=== PATIENT | female | born 1970 | race Caucasian/White ===

== ENCOUNTER → 2017-04-14 | Outpatient (CLI) | payer OTHER ==
[~2017-04-14] MED LIST: LEVO75TA PO; NAPR220T PO
== END | disposition home or self-care (01) ==
LOC: C.LABSPEC 13:27
PROVIDERS: ATTEND Physician Assistant
DX: N76.0 Acute vaginitis (principal)

== ENCOUNTER 2019-12-01 14:40 | Inpatient (IN) ==
[2019-12-01] MEDS ORDERED: cefTRIAXone SODIUM 1,000 MG/50 ML BAG IV STA ×2 (14:43→17:40)
[2019-12-01] MEDS ORDERED: SODIUM CHLORIDE 0.9% 1000ML 1,000 ML IV ONE ×2 (14:43→17:40)
[2019-12-01] MEDS ORDERED: ONDANSETRON INJ 2 MG/ML 2 ML VIAL IV STA (14:43)
--- NOTE | 2019-12-01 14:50 | Emergency Department Note ---
Impression & Plan Bacteremia, UTI (urinary tract infection), Fever, Headache ED Provider Note NAME: HAMZAH SCHERER AGE: 49 SEX: F : 1970 ARRIVES VIA: Walk-In INFORMANT: [Patient][notes] ED PROVIDER(S): [Monster Weinstein MD] CHIEF COMPLAINT: Positive blood cultures HISTORY OF PRESENT ILLNESS: The patient is a 49-year-old female who I saw yesterday in the ED for fever and a headache. She was diagnosed with a UTI. She did have a white count of 12,000. She was given IV Rocephin and prescribed Omnicef. She has been isolating herself as a coronavirus test had been run and was pending. Today, the patient's blood cultures returned showing gram-negative bacilli. Her urine culture grew the same. She was called and told to report back to the ED. The patient states that she still feels hot like she has a fever. She still has a headache but it was not as bad today as yesterday. The headache is moderate in severity and she thinks it may be from lack of nicotine, she recently quit smoking. She has nausea and did vomit one time prior to arrival. No real cough or congestion. She did start her Omnicef as prescribed yesterday. She has taken 1 pill. In general, she does feel better than yesterday. REVIEW OF SYSTEMS: See HPI for pertinent positives and negatives. A total of ten systems were reviewed and were otherwise negative. PMHx/PSHx: See Below SOCIAL HISTORY: See Below. PHYSICAL EXAM: GENERAL: Patient is in no acute distress. HEENT: No acute trauma, normocephalic atraumatic, mucous membranes moist, no nasal congestion, no scleral icterus. NECK: No stridor, no adenopathy, no meningismus, trachea is midline. LUNGS: No respiratory distress, no accessory muscle use. Normal respiratory rate. HEART: Mildly tachycardic, regular rhythm. Equal pulses in both upper extremities. ABDOMEN: Soft, nontender, bowel sounds positive, no hernias, no peritonitis. EXTREMITIES: No cyanosis or edema, full range of motion of all the joints without pain or difficulty, no signs for acute trauma. NEUROLOGIC: Oriented x 3, no acute motor or sensory deficits, no focal weakness. SKIN: No rash, no jaundice, no diaphoresis. DIFFERENTIAL DIAGNOSIS: Sepsis, UTI, pneumonia, metabolic, pyelonephritis, electrolyte abnormalities, bacteremia, cardiac sources, intracerebral event, toxicologic, neurologic, as well as other pathologies. EMERGENCY DEPARTMENT COURSE/PROCEDURES: MEDICAL DECISION MAKING: There is a mild leukocytosis at 11,000, this would be consistent with infection. No anemia. There is a normal platelet count. Renal panel testing does not show renal failure or significant electrolyte abnormality. Lactic acid level was normal making sepsis less likely. There were a few very subtle liver enzyme elevations. Repeat blood cultures were ordered. The patient's blood cultures from yesterday have returned with gram-negative bacilli, this is the same with her urine culture. The patient is going to be hospitalized for IV antibiotic therapy and hydration. The patient was given IV saline, IV Zofran, IV Toradol, IV ceftriaxone and oral Tylenol. She was given a nicotine patch. She is currently resting comfortably. I spoke to the patient and case management. The on-call hospitalist was consulted. Of note, a rapid coronavirus test was performed while in the ED, this returned negative. Past Med/Surg History Medical History Hematuria (Resolved) Hypothyroid Tobacco use Surgical History History of Social History Smoking Status: Former smoker Tobacco Type: Cigarettes Smoking End Date: 11/28/2019; Tobacco Cessation Education Requested by Patient: No Hx Alcohol Use: Yes Alcohol Intake Frequency: Monthly or Less Hx Substance Use: No Preferred Language: Kiswahili Communication Ability: Effective Beliefs That Will Affect Care: None Current Living Situation: Family Feels Safe at Home: Yes Safety Concerns: Feels Safe At This Time Allergies Allergies Allergy/AdvReac Type Severity Reaction Status Date / Time Sulfa (Sulfonamide AdvReac Intermediate VOMITING Verified 12/01/19 15:48 Antibiotics) Home Meds Home Medications Medication Instructions Recorded Confirmed levothyroxine 75 mcg PO DAILY 03/16/19 12/01/19 omeprazole magnesium [Prilosec OTC] 20 mg PO DAILY PRN 03/16/19 12/01/19 cyanocobalamin (vitamin B-12) 0 mcg IM MO 12/01/19 12/01/19 Previous Rx's Medication Instructions Recorded cefdinir 300 mg PO BID 10 Days #20 cap 11/30/19 ondansetron HCl [Zofran] 4 mg PO Q6H PRN #14 tab 11/30/19 Results & Data (ED) Vital Signs Vital Signs - 24 hr 12/01/19 14:45 12/01/19 15:30 12/01/19 15:36 Temperature 38.3 C H Temperature Source Oral Pulse Rate 117 H 93 H 89 Respiratory Rate 16 16 18 Blood Pressure 115/76 118/75 Blood Pressure Mean 89 83 Pulse Oximetry 98 Oxygen Delivery Method Room Air Sepsis Recent Fever Within 48 Hours Yes Sepsis New/Unexplained Change in Mental Status N/A Sepsis Action Taken by Nursing No Action Required 12/01/19 16:00 12/01/19 16:01 12/01/19 16:30 Temperature Temperature Source Pulse Rate 80 79 75 Respiratory Rate 20 18 18 Blood Pressure 101/71 97/72 L Blood Pressure Mean 80 75 Pulse Oximetry Oxygen Delivery Method Sepsis Recent Fever Within 48 Hours Sepsis New/Unexplained Change in Mental Status Sepsis Action Taken by Nursing 12/01/19 16:31 12/01/19 17:00 12/01/19 17:01 Temperature Temperature Source Pulse Rate 74 68 68 Respiratory Rate 17 17 17 Blood Pressure 97/67 L Blood Pressure Mean 71 Pulse Oximetry Oxygen Delivery Method Sepsis Recent Fever Within 48 Hours Sepsis New/Unexplained Change in Mental Status Sepsis Action Taken by Nursing 12/01/19 17:30 12/01/19 17:31 12/01/19 18:00 Temperature 36.8 C Temperature Source Oral Pulse Rate 67 69 66 Respiratory Rate 21 20 18 Blood Pressure 104/73 111/75 Blood Pressure Mean 77 84 Pulse Oximetry Oxygen Delivery Method Sepsis Recent Fever Within 48 Hours Sepsis New/Unexplained Change in Mental Status Sepsis Action Taken by Nursing 12/01/19 18:01 Temperature Temperature Source Pulse Rate 63 Respiratory Rate 18 Blood Pressure Blood Pressure Mean Pulse Oximetry Oxygen Delivery Method Sepsis Recent Fever Within 48 Hours Sepsis New/Unexplained Change in Mental Status Sepsis Action Taken by [facility] Medications Current Medication List: was personally reviewed by me Laboratory Data Attestation: I reviewed the patient's lab results. Result diagrams: 12/01/19 15:04 12/01/19 15:04 Lab Results 12/01/19 12/01/19 12/01/19 Range/Units 15:04 15:04 15:04 WBC 11.33 H (4.8-10.8) K/uL RBC 4.70 (4.2-5.4) M/uL Hgb 15.5 (12.0-16.0) g/dL Hct 42.9 (37-47) % MCV 91.3 (80-100) fL MCH 33.0 (25-34) pg MCHC 36.1 H (32-36) g/dL RDW Std Deviation 46.0 (36.4-46.3) fL RDW Coeff of [place] 13.6 (11.5-14.5) % Plt Count 146 (130-400) K/uL MPV 11.2 H (7.4-10.4) fL Immature Gran % (Auto) 0.3 % Neut % (Auto) 82.0 % Lymph % (Auto) 5.8 % [place] % (Auto) 11.6 % Eos % (Auto) 0.1 % Baso % (Auto) 0.2 % Neut # (Auto) 9.30 H (1.4-6.5) K/uL Lymph # (Auto) 0.66 L (1.2-3.4) K/uL [place] # (Auto) 1.31 H (0.11-0.59) K/uL Eos # (Auto) 0.01 (0-0.5) K/uL Baso # (Auto) 0.02 (0-0.2) K/uL Immature Gran # (Auto) 0.03 H (0.00-0.02) K/uL Sodium 133 L (136-145) mmol/L Potassium 3.5 (3.5-5.1) mmol/L Chloride 104 (98-107) mmol/L Carbon Dioxide 20 L (21-32) mmol/L Anion Gap 9.0 (3-11) BUN 15 (7-18) mg/dl Creatinine 0.98 (0.6-1.2) mg/dl Est Cr Clr Drug Dosing 70.0 ml/min Est GFR ( Amer) 78.5 Est GFR (Non-Af Amer) 67.7 BUN/Creatinine Ratio 15.5 (10-20) Glucose 124 H (70-99) mg/dl Lactate 1.6 (0.4-2.0) mmol/L Calcium 8.2 L (8.5-10.1) mg/dl Total Bilirubin 1.7 H D (0.2-1) mg/dl AST 39 H (15-37) U/L ALT 37 (12-78) U/L Alkaline Phosphatase 112 (45-117) U/L Total Protein 6.6 (6.4-8.2) gm/dl Albumin 3.0 L (3.4-5.0) gm/dl Globulin 3.6 (2.5-4.0) gm/dl Albumin/Globulin Ratio 0.8 L (0.9-2) COVID-19 PCR (Negative) 12/01/19 Range/Units 16:45 WBC (4.8-10.8) K/uL RBC (4.2-5.4) M/uL Hgb (12.0-16.0) g/dL Hct (37-47) % MCV (80-100) fL MCH (25-34) pg MCHC (32-36) g/dL RDW Std Deviation (36.4-46.3) fL RDW Coeff of [place] (11.5-14.5) % Plt Count (130-400) K/uL MPV (7.4-10.4) fL Immature Gran % (Auto) % Neut % (Auto) % Lymph % (Auto) % [place] % (Auto) % Eos % (Auto) % Baso % (Auto) % Neut # (Auto) (1.4-6.5) K/uL Lymph # (Auto) (1.2-3.4) K/uL [place] # (Auto) (0.11-0.59) K/uL Eos # (Auto) (0-0.5) K/uL Baso # (Auto) (0-0.2) K/uL Immature Gran # (Auto) (0.00-0.02) K/uL Sodium (136-145) mmol/L Potassium (3.5-5.1) mmol/L Chloride (98-107) mmol/L Carbon Dioxide (21-32) mmol/L Anion Gap (3-11) BUN (7-18) mg/dl Creatinine (0.6-1.2) mg/dl Est Cr Clr Drug Dosing ml/min Est GFR ( Amer) Est GFR (Non-Af Amer) BUN/Creatinine Ratio (10-20) Glucose (70-99) mg/dl Lactate (0.4-2.0) mmol/L Calcium (8.5-10.1) mg/dl Total Bilirubin (0.2-1) mg/dl AST (15-37) U/L ALT (12-78) U/L Alkaline Phosphatase (45-117) U/L Total Protein (6.4-8.2) gm/dl Albumin (3.4-5.0) gm/dl Globulin (2.5-4.0) gm/dl Albumin/Globulin Ratio (0.9-2) COVID-19 PCR NEGATIVE (Negative) Administered Medications Sodium Chloride (Nss 1000ml) 1,000 mls @ 125 mls/hr IV .Q8H NIRMAL Stop: 12/02/19 11:55 Last Admin: 12/01/19 20:05 Dose: 125 mls/hr Documented by: [id number] Discontinued Medications Acetaminophen (Tylenol) 1,000 mg PO NOW STA Stop: 12/01/19 14:53 Last Admin: 12/01/19 15:20 Dose: 1,000 mg Documented by: [id number] Sodium Chloride (Nss 1000ml) 1,000 mls @ 999 mls/hr IV .Q1H1M ONE Stop: 12/01/19 15:43 Last Infusion: 12/01/19 17:37 Dose: 0 mls/hr Documented by: [id number] Admin: 12/01/19 15:20 Dose: 999 mls/hr Documented by: [id number] Ceftriaxone Sodium (Rocephin) 1,000 mg in 50 mls @ 100 mls/hr IV NOW STA Stop: 12/01/19 15:12 Last Infusion: 12/01/19 16:18 Dose: 0 mls/hr Documented by: [id number] Admin: 12/01/19 15:19 Dose: 100 mls/hr Documented by: [id number] Sodium Chloride (Nss 1000ml) 1,000 mls @ 999 mls/hr IV .Q1H1M ONE Stop: 12/01/19 18:40 Last Infusion: 12/01/19 19:08 Dose: 0 mls/hr Documented by: [id number] Admin: 12/01/19 18:07 Dose: 999 mls/hr Documented by: [id number] Ceftriaxone Sodium (Rocephin) 1,000 mg in 50 mls @ 100 mls/hr IV NOW STA Stop: 12/01/19 18:09 Last Infusion: 12/01/19 18:37 Dose: 0 mls/hr Documented by: [id number] Admin: 12/01/19 18:07 Dose: 100 mls/hr Documented by: [id number] Ketorolac Tromethamine (Toradol) 15 mg IV NOW STA Stop: 12/01/19 14:53 Last Admin: 12/01/19 15:20 Dose: 15 mg Documented by: [id number] Nicotine (Nicoderm Cq) 21 mg TD NOW STA Stop: 12/01/19 15:36 Last Admin: 12/01/19 15:50 Dose: 21 mg Documented by: [id number] Ondansetron HCl (Zofran) 4 mg IV NOW STA Stop: 12/01/19 14:44 Last Admin: 12/01/19 15:20 Dose: 4 mg Documented by: [id number] Potassium Chloride (Klor-Con M20) 40 meq PO NOW STA Stop: 12/01/19 18:09 Last Admin: 12/01/19 18:46 Dose: 40 meq Documented by: [id number] Blood Pressure Blood Pressure Findings: Normal blood pressure Blood Pressure Disposition: further management by hospitalist Discharge Plan Visit Data *Final* Discharge Date/Time: 12/01/19 19:08 Chief Complaint: Abnormal Labs/Diagnostic Testing Stated Complaint: blood work last night bacteria in blood ED Provider: Monster Weinstein Discharge Problem: Bacteremia, UTI (urinary tract infection), Fever, Headache Patient Disposition: Admitted As Inpatient Discharge Instructions Interventions: ED Discharge Assessment Last Done: 12/01/19 19:08 Discharge Problem: UTI (urinary tract infection) Qualifiers: Urinary tract infection type: acute cystitis Hematuria presence: without hematuria Qualified Code(s): N30.00 - Acute cystitis without hematuria Fever Qualifiers: Fever type: unspecified Qualified Code(s): R50.9 - Fever, unspecified Headache Qualifiers: Headache type: unspecified Headache chronicity pattern: acute headache Intractability: not intractable Qualified Code(s): R51 - Headache
[2019-12-01] MEDS ORDERED: KETOROLAC TROMETHAMINE 15 MG/ML VIAL IV STA (14:52)
[2019-12-01] MEDS ORDERED: ACETAMINOPHEN 500 MG TAB PO STA (14:52)
[2019-12-01 15:27] LABS: Basophils # (auto) 0.02 K/uL (0-0.2); Basophils % (auto) 0.2 %; Eosinophils # (auto) 0.01 K/uL (0-0.5); Eosinophils % (auto) 0.1 %; Hematocrit (blood only) 42.9 % (37-47); Hemoglobin 15.5 g/dL (12.0-16.0); Immature Granulocytes # (auto) 0.03 K/uL (0.00-0.02); Immature Granulocytes % (auto) 0.3 %; Lymphocytes # (auto) 0.66 K/uL (1.2-3.4); Lymphocytes % (auto) 5.8 %; Mean Corpuscular Hgb Conc 36.1 g/dL (32-36); Mean Corpuscular Volume 91.3 fL (80-100); Mean Platelet Volume 11.2 fL (7.4-10.4); Monocytes # (auto) 1.31 K/uL (0.11-0.59); Monocytes % (auto) 11.6 %; Platelet Count 146 K/uL (130-400); RDW Coefficient of Variation 13.6 % (11.5-14.5); White Blood Count 11.33 K/uL (4.8-10.8)
[2019-12-01] MEDS ORDERED: NICOTINE 21 MG/24 HR TDSY TD STA (15:35)
[2019-12-01 15:44] LABS: BUN Creatinine Ratio 15.5 (10-20); Calcium 8.2 mg/dl (8.5-10.1); Est GFR (African American) 78.5; Est GFR (Non-African American) 67.7; Potassium 3.5 mmol/L (3.5-5.1)
[2019-12-01 15:52] LABS: Albumin Globulin Ratio 0.8 (0.9-2); Bilirubin,Total 1.7 mg/dl (0.2-1); Globulin 3.6 gm/dl (2.5-4.0); Total Protein 6.6 gm/dl (6.4-8.2)
[2019-12-01] MEDS ORDERED: POTASSIUM CHLORIDE 20 MEQ TABCR PO STA (18:08)
--- NOTE | 2019-12-01 18:25 | History & Physical Report ---
Date of Service December 01, 2019 Assessment & Plan (1) Bacteremia: (2) UTI (urinary tract infection): Pt is 49 y/o F with PMH hypothyroidism returned to ER at request secondary to positive blood cultures. Patient with fever x4 days. Was seen in ER yesterday for fever, headache, dark foul-smelling urine, nausea, decreased appetite 11/30/2019 preliminary urine culture gram-negative bacilli, preliminary blood culture gram-negative bacilli Today in ER T: 38.3, peak: 117, RR: 16, BP 115/76, 98% on room air. WBC 11, lactate 1.6. Negative rapid COVID-19 PCR In ER given 1 g of Rocephin, 1 L NSS Will give additional 1 g of Rocephin to treat bacteremia, an additional 1 L NSS bolus IVF Rocephin [address] abdomen pelvis pending CBC, BMP in a.m. (3) Hypothyroid: Continue levothyroxine (4) Tobacco use: Smoking cessation encouraged Nicotine patch DVT Prophylaxis -SCDs Follows with Dr Celestin for routine care Pt was seen and care coordinated with Dr Lopez. See addendum History of Present Illness Chief Complaint: Requested to return to ER secondary to positive blood cultures Primary Care Provider: Nicholas Celestin MD Pt is 49 y/o F with PMH hypothyroidism returned to ER at request secondary to positive blood cultures. Patient with fever x4 days. Was seen in ER yesterday for fever, headache, dark foul-smelling urine, nausea, decreased appetite. Yesterday in ER WBC: 12, UA consistent with UTI and was treated with Rocephin and discharged on cefdinir. Yesterday patient also had negative CT head, negative CXR, and had COVID testing which is pending. Patient reports her daughter had been diagnosed with COVID 19 around 05 November. Daughter lives with her and daughter was trying to self isolate in bedroom upon diagnosis. Patient denies any shortness of breath, chest pain, cough. She denies diarrhea, abdominal pain, back pain, flank pain, hematuria, dysuria, urinary frequency. Patient states she believes her headache is secondary to nicotine withdrawal. Today since being in ER having a nicotine patch on headache has almost resolved. Denies dizziness, syncope, vision changes, neck pain, sore throat, choking, otalgia, rhinorrhea, paresthesias, extremity weakness, extremity edema, rashes. Allergies Allergy/AdvReac Type Severity Reaction Status Date / Time Sulfa (Sulfonamide AdvReac Intermediate VOMITING Verified 12/01/19 15:48 Antibiotics) Home Medications Home Medications Medication Instructions Recorded Confirmed Type levothyroxine 75 mcg PO DAILY 03/16/19 12/01/19 History omeprazole magnesium [Prilosec OTC] 20 mg PO DAILY PRN 03/16/19 12/01/19 History cefdinir 300 mg PO BID 10 Days #20 cap 11/30/19 12/01/19 Rx ondansetron HCl [Zofran] 4 mg PO Q6H PRN #14 tab 11/30/19 12/01/19 Rx cyanocobalamin (vitamin B-12) 0 mcg IM MO 12/01/19 12/01/19 History Past Med/Surg History Medical History Hematuria (Resolved) Hypothyroid Tobacco use Surgical History History of Social History Smoking Status: Current every day smoker Tobacco Type: Cigarettes Hx Alcohol Use: Yes Alcohol Intake Frequency: Monthly or Less Hx Substance Use: No Preferred Language: Kinyarwanda Feels Safe at Home: Yes Review of Systems Review of Systems: All systems reviewed & are unremarkable except as noted in HPI & below Physical Exam Physical Exam: General: no distress, WDWN Head: normocephalic, atraumatic Eyes: PERRL, EOM's intact, conjunctiva non-injected, anicteric ENT: normal inspection external ears, nose, mucous membranes mildly dry Neck: supple, trachea midline Lungs: clear, no respiratory distress, no wheezing/rhonchi/rales CV: RRR, no murmur, no pretibial edema Abd: normal BS, soft, non-tender, mild left CVA tenderness to percussion Ext: no cyanosis, no calf tenderness Neuro: A&O x 3, no focal deficits noted, normal affect Skin: warm, dry Results & Data Results & Data ([facility]) Vital Signs (Past 12 Hours) Vital Signs Temp Pulse Resp BP Pulse Ox 12/01/19 18:01 63 18 12/01/19 18:00 66 18 111/75 12/01/19 17:31 69 20 12/01/19 17:30 36.8 C 67 21 104/73 12/01/19 17:01 68 17 12/01/19 17:00 68 17 97/67 L 12/01/19 16:31 74 17 12/01/19 16:30 75 18 97/72 L 12/01/19 16:01 79 18 12/01/19 16:00 80 20 101/71 12/01/19 15:36 89 18 12/01/19 15:30 93 H 16 118/75 12/01/19 14:45 38.3 C H 117 H 16 115/76 98 Laboratory Results Short CBC 12/01/19 Range/Units 15:04 WBC 11.33 H (4.8-10.8) K/uL Hgb 15.5 (12.0-16.0) g/dL Hct 42.9 (37-47) % Plt Count 146 (130-400) K/uL BMP 12/01/19 15:04 Sodium 133 L Potassium 3.5 Chloride 104 Carbon Dioxide 20 L BUN 15 Creatinine 0.98 Glucose 124 H Calcium 8.2 L Liver Function 12/01/19 Range/Units 15:04 Total Bilirubin 1.7 H D (0.2-1) mg/dl AST 39 H (15-37) U/L ALT 37 (12-78) U/L Alkaline Phosphatase 112 (45-117) U/L Albumin 3.0 L (3.4-5.0) gm/dl Code Status & VTE Plan VTE Prophylaxis Plan VTE Prophylaxis will be ordered: Yes Supervising Physician Co-Signing Physician Notes Patient was seen and examined by me, care coordinated with Nirmala Cornejo PA-C. Please see her note above for further details. Mrs. Nogueira, is a 49-year-old female, with history of hypothyroidism, GERD, history of UTIs when she was young but no recent UTI , who presents with fever, and confirmed gram-negative bacteremia. She was seen in the emergency room yesterday, and was diagnosed with UTI, sent home with antibiotics. Her blood cultures however came positive and therefore patient was contacted to present to emergency room. She was febrile in the emergency room, 38.3 Celsius, tachycardic 117, white blood cell count elevated at 12 K yesterday, 11.3 currently in ED. Blood pressure was low, 90s over 60s. She is meeting sepsis criteria. She also is known to be exposed to COVID-19, as her daughter was diagnosed about a month ago. COVID-19 rapid test in ED today was negative. Currently patient is sitting up in bed, in no acute distress. She was diaphoretic and febrile however now she feels better after IV fluids and Rocephin. Lungs are clear to auscultation bilaterally, no wheezing rhonchi or crackles. Heart sounds regular. Abdomen soft, nontender, nondistended. She has left flank tenderness. Moves all extremities spontaneously, alert and oriented x3, answers questions appropriately. Skin is warm, dry, well perfused. Patient received 1 g of Rocephin yesterday and 1 g today in ED. Because of her hypotension, I ordered another bolus of IV fluid. And 1 more gram of Rocephin for bacteremia. We will admit patient to hospital, and closely monitor her vital signs. Plan for IVF and 2 g of Rocephin daily. Control of nausea. Image kidneys to rule out obstruction. Lula Lopez MD (1) UTI (urinary tract infection) Hematuria presence: without hematuria Urinary tract infection type: acute cystitis Qualified Code(s): N30.00 - Acute cystitis without hematuria
[2019-12-01] MEDS ORDERED: ONDANSETRON INJ 2 MG/ML 2 ML VIAL IV PRN (19:56)
[2019-12-01] MEDS ORDERED: PANTOprazole 40 MG TAB PO PRN (19:56)
[2019-12-01] MEDS ORDERED: POLYETHYLENE (MIRALAX) 17 GM PACK PO PRN (19:56)
[2019-12-01] MEDS: SODIUM CHLORIDE 0.9% 1000ML 1,000 ML IV SCH (20:05)
--- NOTE | 2019-12-01 20:48 | CT Scan Report ---
CT OF THE ABDOMEN AND PELVIS WITHOUT CONTRAST CLINICAL HISTORY: Pyelonephritis COMPARISON STUDY: CT of the abdomen and pelvis November 08, 2015. TECHNIQUE: Axial images of the abdomen and pelvis were obtained without IV contrast. Images were revi ewed in the axial, sagittal, and coronal planes. Automated exposure control was utilized for the gigi dy. A dose lowering technique was utilized adhering to the principles of ALARA. FINDINGS: Imaged portions of the lower chest demonstrate a trace left pleural effusion. There is mild splenomegaly. Evaluation of the abdomen and pelvis is suboptimal on this unenhanced examination. The liver, adrenal glands, pancreas and right kidney are normal are unremarkable with exception of a 1 c m hepatic lesion which is unchanged since prior CT. This represents a cyst.. There is no biliary or p ancreatic ductal dilatation. No renal, ureteral or bladder calculi are present. There is moderate lef t perinephric infiltration. Although suboptimally assessed on this unenhanced exam, no fluid collecti on is identified to suggest a renal abscess. There is no evidence for a bowel obstruction. There are tubal ligation clips. No suspicious osseous lesions are noted. The appendix is normal. There is no ly mphadenopathy. There are no suspicious skeletal lesions. IMPRESSION: 1. Moderate left perinephric infiltration. No urinary calculi or hydronephrosis. While nonspecific, t he findings suggest left-sided pyelonephritis. No fluid collection to suggest abscess on unenhanced e xam. 2. Mild splenomegaly. 3. Trace pleural effusion. ACT 112: Negative or not required by law. Electronically signed by: Carlos Paul M.D. 12/01/2019 8:46 PM
[2019-12-02] MEDS: KETOROLAC TROMETHAMINE 15 MG/ML VIAL IV PRN ×2 (02:45→09:10)
[2019-12-02] MEDS: SODIUM CHLORIDE 0.9% 1000ML 1,000 ML IV SCH (04:04)
[2019-12-02] MEDS: LEVOTHYROXINE SODIUM 75 MCG TABLET PO SCH (05:41)
[2019-12-02] MEDS: ACETAMINOPHEN 325 MG TAB PO PRN (05:41)
[2019-12-02] MEDS ORDERED: KETOROLAC TROMETHAMINE 15 MG/ML VIAL IV ONE (05:58)
[2019-12-02 07:20] LABS: Basophils # (auto) 0.01 K/uL (0-0.2); Basophils % (auto) 0.1 %; Eosinophils # (auto) 0.02 K/uL (0-0.5); Eosinophils % (auto) 0.2 %; Hematocrit (blood only) 35.6 % (37-47); Hemoglobin 12.8 g/dL (12.0-16.0); Immature Granulocytes # (auto) 0.02 K/uL (0.00-0.02); Immature Granulocytes % (auto) 0.2 %; Lymphocytes # (auto) 0.87 K/uL (1.2-3.4); Lymphocytes % (auto) 9.4 %; Mean Corpuscular Volume 91.8 fL (80-100); Mean Platelet Volume 11.2 fL (7.4-10.4); Monocytes # (auto) 0.98 K/uL (0.11-0.59); Monocytes % (auto) 10.6 %; Neutrophils # (auto) 7.37 K/uL (1.4-6.5); Neutrophils % (auto) 79.5 %; Platelet Count 153 K/uL (130-400); RDW Coefficient of Variation 13.8 % (11.5-14.5); RDW Standard Deviation 46.2 fL (36.4-46.3); Red Blood Count 3.88 M/uL (4.2-5.4); White Blood Count 9.27 K/uL (4.8-10.8)
[2019-12-02 07:53] LABS: BUN Creatinine Ratio 14.5 (10-20); Calcium 7.6 mg/dl (8.5-10.1); Creatinine Clr Calc Pharmacy 106.7 ml/min; Est GFR (Non-African American) 98.3; Potassium 3.5 mmol/L (3.5-5.1)
[2019-12-02] MEDS: NICOTINE 21 MG/24 HR TDSY TD SCH (09:10)
[2019-12-02] MEDS: OXYCODONE HCL IR 5 MG TAB (IMMEDIATE RELEASE) PO PRN ×2 (10:54→20:06)
[2019-12-02] MEDS ORDERED: cefTRIAXone SODIUM 2,000 MG in DEXTROSE 5% 50 ML IV SCH (16:00)
--- NOTE | 2019-12-02 16:55 | Hospitalist Progress Note ---
Date of Service December 02, 2019 Assessment & Plan (1) Septicemia: Sepsis 2/2 acute pyelonephritis. Urine culture has grown a Bactrim resistant E coli, which is likely what is growing in the blood, also. Speciation and sensitivity of the blood cultures have not returned, however, repeat blood culture from yesterday is already clear. She will likely need 14 days of cipro, but will get infectious disease thoughts on that prior to discharge. She is resuscitated and will transfer to medical floor. (2) Acute pyelonephritis: Cont Rocephin pending culture results and ID recommendations. (3) Hypothyroid: Continue levothyroxine per home regimen (4) Tobacco use: Smoking cessation encouraged Nicotine patch (5) DVT prophylaxis: Lovenox Full code Dispo-transfer to medical floor DO Destiny Melissa Hospitalist Admission and Anticipated Discharge Date Admission Date: December 01, 2019 Subjective Pt feeling much better today Afebrile Eating She still reports some lower suprapubic tenderness but this is much improved Denies dysuria reports symptom onset over the weekend (4-5 days ago) States she slept for two days [place] the river [place] with family. Review of Systems Review of Systems: All systems reviewed & are unremarkable except as noted in Subjective Physical Exam Physical Exam: CONSTITUTIONAL: WNWD, vitals as above, generally well- appearing EYES: normal conjunctivae, no scleral icterus ENT: external ear and nose normal, oropharynx clear, MMM RESPIRATORY: clear to auscultation bilaterally, no crackles, rales or wheezes, normal respiratory effort CARDIOVASCULAR: regular rate and rhythm, S1 and 2 heard without murmurs, gallops or rubs, no JVD, no peripheral edema GASTROINTESTINAL: normal bowel sounds, soft, nontender, nondistended, no CVA tenderness bilaterally MUSCULOSKELETAL: strength 5/5 throughout, head is normocephalic and atraumatic SKIN: warm and dry NEUROLOGIC: CN 2-12 grossly intact, normal cognition, no gross focal deficits. PSYCHIATRIC: alert cooperative and oriented to person, place and time. Results & Data Results & Data ([facility]) Vital Signs (Past 12 Hours) Vital Signs Temp Pulse Pulse Resp BP BP Pulse Ox 12/02/19 16:09 36.6 C 72 18 100/69 97 12/02/19 11:11 36.4 C L 64 18 99/66 L 96 12/02/19 08:00 75 12/02/19 07:15 36.8 C 71 18 121/83 96 Laboratory Results Short CBC 12/02/19 Range/Units 07:00 WBC 9.27 (4.8-10.8) K/uL Hgb 12.8 (12.0-16.0) g/dL Hct 35.6 L (37-47) % Plt Count 153 (130-400) K/uL BMP 12/02/19 07:00 Sodium 139 Potassium 3.5 Chloride 113 H Carbon Dioxide 18 L BUN 10 D Creatinine 0.72 Glucose 96 Calcium 7.6 L Medications Administered Current Inpatient Medications Acetaminophen (Tylenol) 650 mg PO Q4H PRN PRN Reason: Pain or Fever Stop: 12/31/19 19:55 Last Admin: 12/02/19 05:41 Dose: 650 mg Documented by: Ceftriaxone Sodium 2,000 mg/ (Dextrose) 70 mls @ 100 mls/hr IV Q24H [facility]; Protocol Stop: 12/12/19 15:59 Last Admin: 12/02/19 16:06 Dose: 100 mls/hr Documented by: Ketorolac Tromethamine (Toradol) 15 mg IV Q6H PRN PRN Reason: Pain Stop: 12/02/19 19:55 Last Admin: 12/02/19 09:10 Dose: 15 mg Documented by: Levothyroxine Sodium (Synthroid) 75 mcg PO DAILYBB [facility] Stop: 01/01/20 06:29 Last Admin: 12/02/19 05:41 Dose: 75 mcg Documented by: Miscellaneous (Remove Nicoderm Patch) 1 ea N/A DAILY@[id number] [facility] Stop: 01/02/20 08:58 Nicotine (Nicoderm Cq) 21 mg TD QAM [facility] Stop: 01/01/20 08:59 Last Admin: 12/02/19 09:10 Dose: 21 mg Documented by: Ondansetron HCl (Zofran) 4 mg IV Q6H PRN PRN Reason: Nausea Stop: 12/31/19 19:55 Last Admin: 12/02/19 00:05 Dose: 4 mg Documented by: Oxycodone HCl (Roxicodone Immediate Rel) 5 - 10 mg PO Q4H PRN PRN Reason: Pain Stop: 12/16/19 05:57 Last Admin: 12/02/19 10:54 Dose: 10 mg Documented by: Pantoprazole Sodium (Protonix) 40 mg PO DAILY PRN PRN Reason: Acid Reflux Stop: 12/31/19 19:55 Polyethylene Glycol (Miralax Powder Packet) 17 gm PO DAILY PRN PRN Reason: Constipation Stop: 12/31/19 19:55
[2019-12-02] MEDS ORDERED: ENOXAPARIN INJ 40 MG/0.4 ML SYR SQ SCH (18:00)
[2019-12-02] MEDS ORDERED: MELATONIN 3 MG TAB PO PRN (21:05)
[2019-12-03] MEDS: ACETAMINOPHEN 325 MG TAB PO PRN (04:53)
[2019-12-03] MEDS: LEVOTHYROXINE SODIUM 75 MCG TABLET PO SCH (04:54)
[2019-12-03 06:36] LABS: BUN Creatinine Ratio 8.7 (10-20); Calcium 7.9 mg/dl (8.5-10.1); Creatinine Clr Calc Pharmacy 121.9 ml/min; Est GFR (African American) 122.1; Est GFR (Non-African American) 105.3; Magnesium 2.1 mg/dl (1.8-2.4); Potassium 3.2 mmol/L (3.5-5.1)
[2019-12-03] MEDS: NICOTINE 21 MG/24 HR TDSY TD SCH (09:03)
[2019-12-03] MEDS: POTASSIUM CHLORIDE 20 MEQ TABCR PO SCH ×2 (12:18→15:03)
--- NOTE | 2019-12-03 14:18 | Discharge Summary ---
Date of Service December 03, 2019 Admission HPI Per Admitting Provider Pt is 49 y/o F with PMH hypothyroidism returned to ER at request secondary to positive blood cultures. Patient with fever x4 days. Was seen in ER yesterday for fever, headache, dark foul-smelling urine, nausea, decreased appetite. Yesterday in ER WBC: 12, UA consistent with UTI and was treated with Rocephin and discharged on cefdinir. Yesterday patient also had negative CT head, negative CXR, and had COVID testing which is pending. Patient reports her daughter had been diagnosed with COVID 19 around 05 November. Daughter lives with her and daughter was trying to self isolate in bedroom upon diagnosis. Patient denies any shortness of breath, chest pain, cough. She denies diarrhea, abdominal pain, back pain, flank pain, hematuria, dysuria, urinary frequency. Patient states she believes her headache is secondary to nicotine withdrawal. Today since being in ER having a nicotine patch on headache has almost resolved. Denies dizziness, syncope, vision changes, neck pain, sore throat, choking, otalgia, rhinorrhea, paresthesias, extremity weakness, extremity edema, rashes. Admission Exam Per Admitting Provider General: no distress, WDWN Head: normocephalic, atraumatic Eyes: PERRL, EOM's intact, conjunctiva non-injected, anicteric ENT: normal inspection external ears, nose, mucous membranes mildly dry Neck: supple, trachea midline Lungs: clear, no respiratory distress, no wheezing/rhonchi/rales CV: RRR, no murmur, no pretibial edema Abd: normal BS, soft, non-tender, mild left CVA tenderness to percussion Ext: no cyanosis, no calf tenderness Neuro: A&O x 3, no focal deficits noted, normal affect Skin: warm, dry Principal Diagnosis E coli bacteremia 2/2 acute pyelonephritis Sepsis 2/2 above-resolved Tobacco use Discharge Exam CONSTITUTIONAL: WNWD, vitals as above, generally well-appearing EYES: normal conjunctivae, no scleral icterus ENT: external ear and nose normal, oropharynx clear, MMM RESPIRATORY: clear to auscultation bilaterally, no crackles, rales or wheezes, normal respiratory effort CARDIOVASCULAR: regular rate and rhythm, S1 and 2 heard without murmurs, gallops or rubs, no JVD, no peripheral edema GASTROINTESTINAL: normal bowel sounds, soft, nontender, nondistended, no CVA tenderness bilaterally MUSCULOSKELETAL: strength 5/5 throughout, head is normocephalic and atraumatic SKIN: warm and dry NEUROLOGIC: CN 2-12 grossly intact, normal cognition, no gross focal deficits. PSYCHIATRIC: alert cooperative and oriented to person, place and time. Discharge Data Allergies Allergy/AdvReac Type Severity Reaction Status Date / Time Sulfa (Sulfonamide AdvReac Intermediate VOMITING Verified 12/01/19 15:48 Antibiotics) Consultations 12/01/19 15:45 ED Decision to Admit Stat 12/02/19 16:55 Consult Infectious Diseases Routine Ordered Studies 12/01/19 19:56 CT abd pelvis wo con Urgent Hospital Course (1) Septicemia: Sepsis 2/2 acute pyelonephritis. Urine and blood cultures grew a Bactrim resistant E coli and she was initially placed on Rocephin. [facility] services were consulted and recommended two weeks of cipro, provided on discharge. At time of discharge she was mentating and ambulating at baseline and tolerating p.o. She was afebrile and hemodynamically stable for least 24 hours and close primary care follow-up was recommended. (2) Acute pyelonephritis: Rocephin switched to Cipro as above. (3) Tobacco use: Smoking cessation was strongly recommended and nicotine transdermal patches were provided at discharge. Close primary care follow-up was recommended to assist with staying quit. Total Time Total Time Spent Total Time Spent (In Minutes): 60 Total Time Includes: Examination of the Patient, Discharge Planning, Medication Reconciliation and Communication With Other Providers Discharge Plan Discharge Items Patient Disposition: Home - Self-Care Reason For Visit: UTI,BACTEREMIA Discharge Diagnosis: E coli bacteremia 2/2 acute pyelonephritis Sepsis 2/2 above-resolved Tobacco use Activity: Resume your previous activity Non-emergency contact: Primary Care Provider Call non-emergency contact if: you have any medication questions, your symptoms worsen, your pain is not controlled, your pain is worsening, your pain is unusual for you, your pain is concerning for you and you have a fever Follow-up/Referrals: Nicholas Celestin MD [Primary Care Provider] - 12/07/19 11:20 am (12/07/2019 11:20 AM Provider Serina Walker MD Department General Internal Medicine [facility] ) Diet: Regular Addtl Attending Provider Instructions: Please take all medications as instructed on discharge list below. You are being continued on an antibiotic regimen going home. Please take the entire course of antibiotics unless you develop side effects. If this is the case, please contact your primary care physician (PCP) right away to be given an alternative. It is recommended that you followup with your PCP at the time/date above to ensure you are still doing well after the discharge home. It is strongly recommended that you quit smoking. You are being prescribed nicotine supplementation to help you with this as it is TERRIBLE FOR YOUR HEALTH! Another resource is 9-849-XGHW-NOW. It was a pleasure taking care of you! Please call if you have any questions or problems. You can reach a [facility] hospitalist on duty at [facility] 24 hours a day by calling [phone]. Take care of yourself. Lolis Hinds, DO [facility] Hospitalist Pending Studies at Discharge: Yes Studies:: finalized repeat blood cultures-negative at time of discharge. Stand-Alone Forms: My [facility], Work/School Release (Inpt), Smoking Cessation Medications and DC Order Prescriptions: New ciprofloxacin HCl 750 mg tablet 750 mg PO BID Qty: 28 RF: 0 nicotine [Nicoderm CQ] 21 mg/24 hr Patch 24 Hour 21 mg transdermal QAM Qty: 14 RF: 1 Continued levothyroxine 75 mcg tablet 75 mcg PO DAILY RF: 0 omeprazole magnesium [Prilosec OTC] 20 mg Tablet,Delayed Release (Dr/Ec) 20 mg PO DAILY PRN (Reason: Acid Reflux) RF: 0 ondansetron HCl [Zofran] 4 mg tablet 4 mg PO Q6H PRN (Reason: nausea and vomiting) Qty: 14 RF: 0 cyanocobalamin (vitamin B-12) 1,000 mcg/mL solution 0 mcg IM MO RF: 0 Discontinued cefdinir 300 mg capsule 300 mg PO BID 10 Days Qty: 20 RF: 0 Discharge Orders: Discharge Order (Routine); Ordered 12/03/19 Ordered By: Lolis Woods/Other Patient Handouts: Nicotine skin patches Admission Data Admit Date/Time: 12/01/19 18:10 Attending Provider: Lolis Hinds Admit Provider: Lan Lopez Primary Care Provider: Nicholas Celestin Other Providers: Lan Lopez ; Khalif Milan ; Kacie Patricio ; Dale Ken I. ; Atul Gonzalez II ; Alejandra Harris ; Shai Fang Other Interventions: Discharge Summary Assessment (RN) Last Done: 12/03/19 14:21 DC Date/Time DO NOT enter until pt leaves facility: 12/03/19 15:07
== END 2019-12-03 15:07 | disposition home or self-care (01) | DRG 872 ==
LOC: ED 14:40 → 2S 18:10 → SUATTDRO 18:10 → 2S 19:08 → 3N 12-02 20:22

== ENCOUNTER 2024-12-13 16:32 | Observation (INO) ==
--- NOTE | 2024-12-13 16:44 | Emergency Department Note ---
Impression & Plan Sepsis, Pyelonephritis of left kidney, UTI (urinary tract infection), Nausea, Left flank pain, Fever ED Provider Note CHIEF COMPLAINT: Infection, concern for sepsis, fever, chills, aches HISTORY OF PRESENTING ILLNESS: The patient is a 54-year-old female who presents to the emergency department due to nausea, fever, pain with urination, and left flank pain for 2 days. She states that she has been feeling a very fatigued and has chills. She reports having a history of urosepsis. She denies blood in her urine, constipation, diarrhea, chest pain, shortness of breath, and vomiting. REVIEW OF SYSTEMS: See HPI for pertinent positives and pertinent negatives. ALLERGIES: Sulfa antibiotics MEDICATIONS: See below PAST MEDICAL HISTORY: See below PHYSICAL EXAM: VITALS: Vitals are noted on the nurses note and reviewed by myself. Vital signs stable. GENERAL: 54-year-old female, lying uncomfortably in bed, in no acute distress, nondiaphoretic, well-developed well-nourished. SKIN: Capillary refill less than 2 seconds. HEENT: Normocephalic. PERRLA. EOMI. Nares patent. Mucous membranes moist. Neck is supple without nuchal rigidity. HEART: Regular rate and rhythm without murmurs gallops or rubs. LUNGS: CTA BL without wheezes, rales or rhonchi. No retractions or accessory muscle use. ABDOMEN: Positive BS x 4. Tenderness upon palpation to the left flank/left middle abdomen. The remaining abdominal quadrants are nontender. The abdomen is soft without masses. No guarding rebound tenderness. No ascites. MUSCULOSKELETAL: No gross musculoskeletal defects. NEURO: Patient was alert and oriented to person place and time. No focal neurological deficits. DIFFERENTIAL DIAGNOSIS: UTI, pyelonephritis, hydronephrosis, sepsis, appendicitis, diverticulitis, bowel obstruction, inflammatory bowel disease, PUD, biliary pathology, pancreatitis, mesenteric ischemia, aortic pathology, perforated viscus, among others. ED COURSE AND MEDICAL DECISION MAKING: HISTORY FROM INDEPENDENT HISTORIAN: The patient herself and her daughter. MEDICATIONS GIVEN: Tylenol 1000 mg IV, Zofran 4 mg IV, 2 g Rocephin IV, 2 L normal saline MONITOR: Continuous assistant business manager: Order was placed for continuous assistant business manager. INTERPRETATION OF LABS: I interpreted the labs with full lab results as below in the lab section of this note. Pertinent lab results discussed in the MDM section below. INTERPRETATION OF IMAGING: Imaging studies were interpreted by myself and read by radiology as per the imaging section of this note. CT abdomen pelvis - Left pyelonephritis. Small left renal cyst. A small amount of free pelvic fluid. Small hiatal hernia. A small hepatic cyst. ESCALATION OF CARE CONSIDERED: Escalation of care was considered due to patient having known UTI symptoms, left-sided flank pain, and fever. A full workup was completed and shows she does meet sepsis criteria with a known UTI, left pyelonephritis, fever, leukocytosis. The patient was admitted to medicine for IV antibiotics and hydration. CONSULTATIONS: On-call [facility] Hospitalist - Presented the patient to the provider and that she meets sepsis criteria with a UTI, left pyelonephritis, leukocytosis, and a documented fever here in the emergency department. She was given 2 g Rocephin, pain management, and Zofran for nausea. The patient has not been able to stay hydrated due to nausea and due to her meeting sepsis criteria and her appearance on physical exam I do believe that she would benefit from admission for IV antibiotics and hydration. Provider agreed to evaluate the patient and admitting her to medicine. MDM SUMMARY: I evaluated the 54-year-old female presents the emergency department due to left-sided flank pain, burning with urination for 2 days, and nausea. See HPI and physical exam above. IV access was established and labs were obtained. Tylenol and Zofran were given for symptom management. Due to the patient having a fever, noted UTI, and leukocytosis sepsis fluid repletion was started immediately. The patient was given 2 L normal saline. Leukocytosis WBC 5.59. RBC 4.80. Hemoglobin hematocrit 16.1/44.3. No electrolyte abnormalities. No ALLI. AST 18. ALT 19. Procalcitonin elevated 0.85. Lactate 1.1. Urinalysis shows 3+ protein, 1+ ketones, 3+ blood, positive nitrates, 2+ leukocyte Estrace. The patient was started on 2 g Rocephin. On reevaluation she does confirm that her nausea has improved but she is still experiencing pain. CT abdomen pelvis shows left pyelonephritis. Other incidental findings reviewed with the patient. Patient does admit to poor hydration due to feeling nauseous. After my evaluation of the patient and meeting sepsis criteria I do believe that she would benefit from admission to medicine for IV hydration and antibiotics. A consultation with the on-call [facility] hospitalist can be seen in detail above. They agreed to evaluating the patient and admitting her to medicine. Again all results were reviewed with the patient and she agrees to the outlined treatment plan. Further pain management was provided by the hospitalist team. The patient was admitted in stable condition. DIAGNOSIS: Sepsis, pyelonephritis left kidney, UTI, nausea, left flank pain, fever The chart was completed utilizing [employer] Speech voice recognition software. Grammatical errors, random word insertions, pronoun errors, and incomplete sentences are an occasional consequence of this system due to software limitations, ambient noise, and hardware issues. Any formal questions or concerns about the content, text, or information contained within the body of this dictation should be directly addressed to the provider for clarification. Past Med/Surg History Problem List (Updated 12/13/24 @ 21:40 by Teresa Vazquez PA-C) Fever (Acute) Left flank pain (Acute) UTI (urinary tract infection) (Acute) Pyelonephritis of left kidney (Acute) Sepsis (Acute) Medical History Prediabetes Hypothyroidism Tobacco use disorder Surgical History History of bilateral tubal ligation History of suburethral sling procedure H/O foot surgery Status post hysteroscopic ablation of endometrium History of Family History Brother Colon cancer Social History Smoking Status: Current every day smoker Tobacco Type: Cigarettes Hx Alcohol Use: Yes Alcohol Intake Frequency: Monthly or Less Hx Substance Use: No Preferred Language: Vincentian Communication Ability: Effective Beliefs That Will Affect Care: None Current Living Situation: Family Feels Safe at Home: Yes Assistive Devices: None Allergies Allergies Allergy/AdvReac Type Severity Reaction Status Date / Time Sulfa (Sulfonamide AdvReac Intermediate VOMITING Verified 12/13/24 19:10 Antibiotics) Home Meds Home Medications Medication Instructions Recorded Confirmed No Known Home Medications 12/13/24 12/13/24 Results & Data (ED) Vital Signs Vital Signs - 24 hr 12/13/24 16:35 12/13/24 16:59 12/13/24 17:30 Temperature 37.1 C 37.9 C H Temperature Source Oral Oral Pulse Rate 113 H 102 H Pulse Rate [Apical] 79 Pulse Strength [Apical] Normal Respiratory Rate 17 18 Respiratory Effort / Characteristics Non-Labored Spontaneous Respiratory Depth Normal Respiratory Pattern Regular Blood Pressure 115/81 Blood Pressure [Right Arm] 113/76 Blood Pressure Mean 92 Blood Pressure Mean [Right Arm] 88 Pulse Oximetry 95 98 Oxygen Delivery Method Room Air Room Air Sepsis Recent Fever Within 48 Hours Yes Sepsis New/Unexplained Change in Mental Status N/A Sepsis Action Taken by Nursing No Action Required 12/13/24 18:16 12/13/24 18:25 Temperature 37.3 C Temperature Source Oral Pulse Rate Pulse Rate [Apical] 81 Pulse Strength [Apical] Respiratory Rate 19 Respiratory Effort / Characteristics Non-Labored Spontaneous Respiratory Depth Normal Respiratory Pattern Regular Blood Pressure Blood Pressure [Right Arm] 116/74 Blood Pressure Mean Blood Pressure Mean [Right Arm] 88 Pulse Oximetry 99 Oxygen Delivery Method Room Air Sepsis Recent Fever Within 48 Hours Sepsis New/Unexplained Change in Mental Status Sepsis Action Taken by Nursing Laboratory Data 12/13/24 16:50 12/13/24 16:50 Lab Results 12/13/24 12/13/24 Range/Units 16:45 16:50 WBC 15.59 H (4.8-10.8) K/ul RBC 4.80 (4.20-5.40) M/uL Hgb 16.1 H (12.0-16.0) g/dl Hct 44.3 (37.0-47.0) % MCV 92.3 (80.0-100.0) fL MCH 33.5 (25.0-34.0) pg MCHC 36.3 H (32.0-36.0) g/dL RDW Std Deviation 44.1 (36.4-46.3) fL RDW Coeff of [place] 13.0 (11.5-14.5) % Plt Count 220 (130-400) K/uL MPV 10.4 (9.4-12.4) fL Immature Gran % (Auto) 0.5 % Neut % (Auto) 85.3 % Lymph % (Auto) 8.8 % [place]ake % (Auto) 4.9 % Eos % (Auto) 0.1 % Baso % (Auto) 0.4 % Neut # (Auto) 13.30 H (1.40-6.50) K/uL Lymph # (Auto) 1.37 (1.20-3.40) K/uL Leake # (Auto) 0.76 H (0.11-0.59) K/uL Eos # (Auto) 0.01 (0.00-0.50) K/uL Baso # (Auto) 0.07 (0.00-0.20) K/uL Immature Gran # (Auto) 0.08 (0.01-0.20) K/uL Sodium 136 (136-145) mmol/L Potassium 3.5 (3.5-5.1) mmol/L Chloride 105 (98-107) mmol/L Carbon Dioxide 22 (21-32) mmol/L Anion Gap 9 (3-11) BUN 11 (6-23) mg/dl Creatinine 0.92 (0.6-1.2) mg/dl Est Cr Clr Drug Dosing 83.1 ml/min eGFR 73.99 BUN/Creatinine Ratio 12.0 (10-20) Glucose 126 H (70-99(Fasting)) mg/dl Lactate 1.1 (0.4-2.0) mmol/L Calcium 9.1 (8.6-10.3) mg/dl Total Bilirubin 1.7 H (0.2-1.0) mg/dl AST 18 (13-39) U/L ALT 19 (7-52) U/L Alkaline Phosphatase 75 (34-104) U/L Total Protein 6.9 (6.0-8.3) gm/dl Albumin 4.5 (3.4-5.0) gm/dl Globulin 2.4 L (2.5-4.0) gm/dl Albumin/Globulin Ratio 1.9 (0.9-2) Procalcitonin 0.85 H (0-0.5) ng/ml Urine Color Yellow Urine Appearance Cloudy A (Clear) Urine pH 5.5 (4.5-7.5) Ur Specific [place] 1.013 (1.000-1.030) Urine Protein 3+ H (Negative) Urine Glucose (UA) Negative (Negative) Urine Ketones 1+ H (Negative) Urine Blood 3+ H (Negative) Urine Nitrite Positive A (Negative) Urine Bilirubin Negative (Negative) Urine Urobilinogen Negative (Negative) Ur Leukocyte Esterase 2+ H (Negative) Urine WBC (Auto) >50 H (0-5) /hpf Urine RBC (Auto) >20 H (0-2) /hpf U Hyaline Cast (Auto) 3-5 H (0-2) /lpf U Epithel Cells (Auto) 3-5 H (0-2) /hpf Urine Bacteria (Auto) 2+ H (None Seen) Urine Comment Administered Medications Enoxaparin Sodium (Enoxaparin Inj 40 Mg/0.4 Ml Syr) 40 mg SQ Q24H NIRMAL Stop: 01/12/25 19:09 Last Admin: 12/13/24 19:46 Dose: 40 mg Documented By: JONAS Sodium Chloride (Nss) 1,000 mls @ 100 mls/hr IV .Q10H NIRMAL Stop: 12/14/24 06:59 Last Admin: 12/13/24 21:33 Dose: 100 mls/hr Documented By: LINK Miscellaneous (Remove Lidoderm Patch) 1 each N/A DAILY@2100 NIRMAL Stop: 01/12/25 20:59 Last Admin: 12/13/24 20:02 Dose: Not Given Documented By: JONAS Discontinued Medications Acetaminophen (Ofirmev) 1,000 mg in 100 mls @ 400 mls/hr IV NOW STA Stop: 12/13/24 17:12 Last Infusion: 12/13/24 17:33 Dose: Infused Documented By: Admin: 12/13/24 17:06 Dose: 400 mls/hr Documented By: CATARINA Sodium Chloride (Nss) 1,000 mls @ 999 mls/hr IV .Q1H1M NIRMAL Stop: 12/13/24 19:30 Last Infusion: 12/13/24 19:22 Dose: Infused Documented By: Admin: 12/13/24 18:02 Dose: 999 mls/hr Documented By: Infusion: 12/13/24 18:02 Dose: Infused Documented By: Admin: 12/13/24 17:35 Dose: 999 mls/hr Documented By: PETER Ceftriaxone Sodium (Rocephin) 2,000 mg in 50 mls @ 100 mls/hr IV NOW STA Stop: 12/13/24 18:48 Last Infusion: 12/13/24 19:11 Dose: Infused Documented By: Admin: 12/13/24 18:23 Dose: 100 mls/hr Documented By: PETER Ioversol (Optiray 320 100ml) 93 ml IV ONCE ONE Stop: 12/13/24 17:49 Last Admin: 12/13/24 17:48 Dose: 93 ml Documented By: VINNIE Lidocaine (Lidocaine 5% 1 Patch) 1 patch TD NOW STA Stop: 12/13/24 19:24 Last Admin: 12/13/24 19:45 Dose: 1 patch Documented By: JONAS Ondansetron HCl (Ondansetron Inj 2 Mg/Ml 2 Ml Vial) 4 mg IV NOW STA Stop: 12/13/24 16:59 Last Admin: 12/13/24 17:06 Dose: 4 mg Documented By: CATARINA Oxycodone HCl (Oxycodone Hcl Ir 5 Mg Tab (Immediate Release)) 5 mg PO NOW STA Stop: 12/13/24 19:14 Last Admin: 12/13/24 19:19 Dose: 5 mg Documented By: JONAS Imaging Data Radiologist's Impression: Abdomen/Pelvis CT 12/13/24 16:58 Clinical History: Left flank pain Technique: Axial computed tomography images were obtained of the abdomen and pelvis after the administration of intravenous contrast. No prior CT is available for comparison. Findings: The liver is overall of normal size, attenuation, and contour with no sign of cirrhosis or significant fatty infiltration. There is a 7 mm cyst in the left hepatic lobe. No liver mass lesion is seen. The portal vein is patent. The gallbladder appears unremarkable. No bile duct dilatation is noted. The spleen is of normal size. No focal splenic lesion is evident. The pancreas appears normal with no sign of acute or chronic pancreatitis and no mass lesion noted. The pancreatic duct is of normal caliber. The adrenal glands appear unremarkable. No definite renal or proximal ureteral calculi are seen on this contrast-enhanced study. There is no hydronephrosis. There is left perinephric stranding. There is multifocal mildly diminished cortical enhancement of the left kidney. No definite renal mass lesion is identified. There is a suspected small 4 mm left renal cyst. The aorta is of normal caliber. No abdominal adenopathy is seen. There is a small umbilical hernia containing only fat There is a small hiatal hernia. There is prominence of the gastric wall that is likely due to the decompressed state. There is no sign of small bowel obstruction. The colon appears unremarkable. The appendix appears normal also. No free intraperitoneal air is identified. There is a small amount of free pelvic fluid No distal ureteral or bladder calculi are seen. The bladder is decompressed. The iliac arteries are of normal caliber. No pelvic adenopathy is noted. There are bilateral tubal ligation clips There is mild subsegmental atelectasis in the lung bases. No fracture is identified. No focal osseous lesion is seen Impression: 1. Suspected left pyelonephritis. Correlation with clinical symptoms and laboratory values is recommended 2. Small left renal cyst 3. Small amount of free pelvic fluid 4. Small hiatal hernia 5. Small hepatic cyst ACT 112: Positive. There are findings on this exam that require communication between the performing entity and the patient following Patient Test Result Information Act ([place] ACT 112) guidelines. Electronically signed by José Luis Coulter 12-13-2024 6:17 PM Discharge Plan Visit Data Chief Complaint: Infection Stated Complaint: INFXN (CONCERN ABT SEPSIS), FEVER, CHILLS, ACHES ED Provider: Monster Weinstein ED Midlevel Provider: Teresa Vazquez Discharge Problem: Sepsis, Pyelonephritis of left kidney, UTI (urinary tract infection), Nausea, Left flank pain, Fever Patient Disposition: Admitted As Inpatient Condition: Good Discharge Instructions Interventions: ED Discharge Assessment Last Done: 12/13/24 19:10 Discharge Problem: Sepsis Qualifiers: Sepsis type: sepsis due to unspecified organism Sepsis acute organ dysfunction status: without acute organ dysfunction Qualified Code(s): A41.9 - Sepsis, unspecified organism UTI (urinary tract infection) Qualifiers: Urinary tract infection type: acute pyelonephritis Qualified Code(s): N10 - Acute pyelonephritis Fever Qualifiers: Fever type: unspecified Qualified Code(s): R50.9 - Fever, unspecified
[2024-12-13] MEDS: ACETAMINOPHEN 1,000 MG/100 ML VIAL IV STA (17:06)
[2024-12-13] MEDS: ONDANSETRON INJ 2 MG/ML 2 ML VIAL IV STA (17:06)
[2024-12-13 17:16] LABS: Hematocrit (blood only) 44.3 % (37.0-47.0); Hemoglobin 16.1 g/dl (12.0-16.0); Immature Granulocytes # (auto) 0.08 K/uL (0.01-0.20); Immature Granulocytes % (auto) 0.5 %; Mean Corpuscular Hemoglobin 33.5 pg (25.0-34.0); Mean Corpuscular Volume 92.3 fL (80.0-100.0); Platelet Count 220 K/uL (130-400); RDW Standard Deviation 44.1 fL (36.4-46.3); Red Blood Count 4.80 M/uL (4.20-5.40); White Blood Count 15.59 K/ul (4.8-10.8)
[2024-12-13 17:22] LABS: Appearance Urine Cloudy (Clear); Bacteria Urine Automated 2+ (None Seen); Glucose Urine UA Negative (Negative); RBC Urine Automated >20 /hpf (0-2); WBC Urine Automated >50 /hpf (0-5)
[2024-12-13 17:32] LABS: Alanine Aminotransferase 19.0 U/L (7-52); Albumin Globulin Ratio 1.9 (0.9-2); Alkaline Phosphatase 75.0 U/L (34-104); Anion Gap 9.0 (3-11); Bilirubin,Total 1.7 mg/dl (0.2-1.0); Blood Urea Nitrogen 11.0 mg/dl (6-23); Calcium 9.1 mg/dl (8.6-10.3); Carbon Dioxide 22.0 mmol/L (21-32); Chloride 105.0 mmol/L (98-107); Creatinine Clr Calc Pharmacy 83.1 ml/min; Globulin 2.4 gm/dl (2.5-4.0); Glucose 126.0 mg/dl (70-99(Fasting)); Potassium 3.5 mmol/L (3.5-5.1); Sodium 136.0 mmol/L (136-145); Total Protein 6.9 gm/dl (6.0-8.3)
[2024-12-13] MEDS: SODIUM CHLORIDE 0.9% 1,000 ML IV SCH ×2 (17:35→21:33)
[2024-12-13] MEDS: OPTIRAY 320 100ml IV ONE (17:48)
--- NOTE | 2024-12-13 18:17 | CT Scan Report ---
Clinical History: Left flank pain Technique: Axial computed tomography images were obtained of the abdomen and pelvis after the administration of intravenous contrast. No prior CT is available for comparison. Findings: The liver is overall of normal size, attenuation, and contour with no sign of cirrhosis or significant fatty infiltration. There is a 7 mm cyst in the left hepatic lobe. No liver mass lesion is seen. The portal vein is patent. The gallbladder appears unremarkable. No bile duct dilatation is noted. The spleen is of normal size. No focal splenic lesion is evident. The pancreas appears normal with no sign of acute or chronic pancreatitis and no mass lesion noted. The pancreatic duct is of normal caliber. The adrenal glands appear unremarkable. No definite renal or proximal ureteral calculi are seen on this contrast-enhanced study. There is no hydronephrosis. There is left perinephric stranding. There is multifocal mildly diminished cortical enhancement of the left kidney. No definite renal mass lesion is identified. There is a suspected small 4 mm left renal cyst. The aorta is of normal caliber. No abdominal adenopathy is seen. There is a small umbilical hernia containing only fat There is a small hiatal hernia. There is prominence of the gastric wall that is likely due to the decompressed state. There is no sign of small bowel obstruction. The colon appears unremarkable. The appendix appears normal also. No free intraperitoneal air is identified. There is a small amount of free pelvic fluid No distal ureteral or bladder calculi are seen. The bladder is decompressed. The iliac arteries are of normal caliber. No pelvic adenopathy is noted. There are bilateral tubal ligation clips There is mild subsegmental atelectasis in the lung bases. No fracture is identified. No focal osseous lesion is seen Impression: 1. Suspected left pyelonephritis. Correlation with clinical symptoms and laboratory values is recommended 2. Small left renal cyst 3. Small amount of free pelvic fluid 4. Small hiatal hernia 5. Small hepatic cyst ACT 112: Positive. There are findings on this exam that require communication between the performing entity and the patient following Patient Test Result Information Act ([place] ACT 112) guidelines. Electronically signed by José Luis Coulter 12-13-2024 6:17 PM
[2024-12-13] MEDS: cefTRIAXone SODIUM 2,000 MG/50 ML BAG IV STA (18:23)
--- NOTE | 2024-12-13 19:03 | History & Physical Report ---
Date of Service December 13, 2024 Assessment & Plan (1) Sepsis: (2) Pyelonephritis of left kidney: Plan: This is a 52-year-old female with PMH of hypertension, prediabetes, h/o Lesly's thyroiditis and other medical problems listed below who presents to the ED with her daughter at bedside due to urinary symptoms x 3 days and findings consistent with acute pyelonephritis. Tmax 37.9, HR 113, WBC 15k, procal 0.85 with grossly abnormal UA meeting sepsis criteria CT abd/pelvis with 1. Suspected left pyelonephritis. 2. Small left renal cyst 3. Small amount of free pelvic fluid In ED received: 2L NSS bolus, 2gm Rocephin, 1gm Tylenol, 4mg Zofran Persistent pain despite tylenol x 1 - scheduled Tylenol 1gm Q8H, lidocaine patch, Toradol and oxycodone added PRN Continue empiric Rocephin Follow urine and blood cultures (3) Tobacco use disorder: Plan: Continues to smoke 1/2 pack per day. Offered nicotine patch and declined (4) Hypothyroidism: Plan: Previously on levothyroxine for Lesly's thyroiditis but discontinued d/t side effects per Epic review Repeat TSH with reflex T4 in AM (5) Prediabetes: Plan: A1c 5.7 in 2021, repeat a1c tomorrow DVT Ppx: SQ lovenox Code status: FULL PCP: Previously followed with Dr. Celestin but has not followed up since 2021 Dispo: Admitted to med/surg Patient seen in collaboration with Dr. Acharya. Please see addendum. I spent a total of 75 minutes coordinating, documenting, and providing care for this patient excluding time spent in the performance of separately billed services or time spent by another provider/QHP. History of Present Illness Chief Complaint: Flank pain, urinary symptoms Primary Care Provider: Nicholas Celestin MD This is a 52-year-old female with PMH of hypertension, prediabetes, h/o Lesly's thyroiditis and other medical problems listed below who presents to the ED with her daughter at bedside due to urinary symptoms x 3 days and fever. Patient first notes dysuria 2 days ago and then yesterday developed subjective fever, chills, decreased appetite and left flank pain radiating to her back described as intermittent and sharp. Daughter states she has been sleeping most of the time since yesterday at 1300. Had similar symptoms in 2019 when she was admitted for complicated UTI and found to be growing a Bactrim-resistant E. coli growing on blood cultures. Denies any urinary issues since then. Does not take any medications at home. Upon chart review, has not seen PCP since 2021. Previously prescribed levothyroxine for Lesly's thyroiditis but did not like the side effects of medication per chart review and has discontinued. Also noted to be prediabetic in the past with A1c of 5.7 in 2021. Patient with improved vitals and afebrile at time of evaluation in ED. Has rigors and continues to have pain in left flank, 610. No exacerbating or remitting factors. No vomiting but persistently poor appetite. Feels dehydrated. No lightheadedness, chest pain, shortness of breath, abdominal pain, diarrhea or constipation. Allergies Allergy/AdvReac Type Severity Reaction Status Date / Time Sulfa (Sulfonamide AdvReac Intermediate VOMITING Verified 12/13/24 19:10 Antibiotics) Home Medications Medication Instructions Recorded Confirmed Type No Known Home Medications 12/13/24 12/13/24 History Past Med/Surg History Problem List (Updated 12/13/24 @ 20:38 by Maggie Ken PA-C) Pyelonephritis of left kidney (Acute) Sepsis (Acute) Medical History (Updated 12/13/24 @ 20:38 by Maggie Kne PA-C) Prediabetes Hypothyroidism Tobacco use disorder Surgical History History of bilateral tubal ligation History of suburethral sling procedure H/O foot surgery Status post hysteroscopic ablation of endometrium History of Family History Brother Colon cancer Social History Smoking Status: Current every day smoker Tobacco Type: Cigarettes Hx Alcohol Use: Yes Alcohol Intake Frequency: Monthly or Less Hx Substance Use: No Preferred Language: Jamaican Communication Ability: Effective Beliefs That Will Affect Care: None Current Living Situation: Family Feels Safe at Home: Yes Assistive Devices: None Review of Systems Review of Systems: At least ten systems reviewed and negative except as noted in the HPI. Physical Exam Physical Exam: General Appearance: WD/WN, vitals as above, NAD, sitting up in bed, appears ill, +rigors, answers questions appropriately Head: normocephalic, atraumatic Eyes: normal inspection, PERRL, conjunctivae normal, anicteric sclerae ENT: external ear and nose normal, dry mucous membranes of oropharynx Neck: normal visual inspection Respiratory: normal respiratory effort, lungs clear to auscultation, no wheeze, rales, rhonchi. No accessory muscle use Cardiovascular: tachycardic rate, regular rhythm, normal peripheral pulses, no BLE edema. Vessels: no JVD Chest: normal inspection of chest Abdomen/GI: normal bowel sounds, soft,no hepatosplenomegaly : L flank pain with radiation to L CVA Extremities/Musculoskeletal: no cyanosis or clubbing, extremities motor strength 5/5 Neurologic: PERRL, EOMI, accommodation nl, no face palsy, no dysarthria, CN's II-XI intact bilaterally and moves all extremities Psychiatric: A+Ox3, flat affect Skin: no rashes, normal color, warm/dry Results & Data Results & Data Vital Signs (Past 12 Hours) Vital Signs Temp Pulse Pulse Resp BP BP Pulse Ox 12/13/24 18:25 37.3 C 12/13/24 18:16 81 19 116/74 99 12/13/24 17:30 37.9 C H 79 18 113/76 98 12/13/24 16:59 102 H 12/13/24 16:35 37.1 C 113 H 17 115/81 95 O2 Del Method 12/13/24 18:25 12/13/24 18:16 Room Air 12/13/24 17:30 Room Air 12/13/24 16:59 12/13/24 16:35 Room Air Laboratory Results Short CBC 12/13/24 Range/Units 16:50 WBC 15.59 H (4.8-10.8) K/ul Hgb 16.1 H (12.0-16.0) g/dl Hct 44.3 (37.0-47.0) % Plt Count 220 (130-400) K/uL BMP 12/13/24 16:50 Sodium 136 Potassium 3.5 Chloride 105 Carbon Dioxide 22 BUN 11 Creatinine 0.92 Glucose 126 H Calcium 9.1 Liver Function 12/13/24 Range/Units 16:50 Total Bilirubin 1.7 H (0.2-1.0) mg/dl AST 18 (13-39) U/L ALT 19 (7-52) U/L Alkaline Phosphatase 75 (34-104) U/L Albumin 4.5 (3.4-5.0) gm/dl Urine 12/13/24 Range/Units 16:45 Urine Color Yellow Urine Appearance Cloudy A (Clear) Urine pH 5.5 (4.5-7.5) Ur Specific [place] 1.013 (1.000-1.030) Urine Protein 3+ H (Negative) Urine Glucose (UA) Negative (Negative) Diagnostic Findings Abdomen/Pelvis CT 12/13/24 16:58 Clinical History: Left flank pain Technique: Axial computed tomography images were obtained of the abdomen and pelvis after the administration of intravenous contrast. No prior CT is available for comparison. Findings: The liver is overall of normal size, attenuation, and contour with no sign of cirrhosis or significant fatty infiltration. There is a 7 mm cyst in the left hepatic lobe. No liver mass lesion is seen. The portal vein is patent. The gallbladder appears unremarkable. No bile duct dilatation is noted. The spleen is of normal size. No focal splenic lesion is evident. The pancreas appears normal with no sign of acute or chronic pancreatitis and no mass lesion noted. The pancreatic duct is of normal caliber. The adrenal glands appear unremarkable. No definite renal or proximal ureteral calculi are seen on this contrast-enhanced study. There is no hydronephrosis. There is left perinephric stranding. There is multifocal mildly diminished cortical enhancement of the left kidney. No definite renal mass lesion is identified. There is a suspected small 4 mm left renal cyst. The aorta is of normal caliber. No abdominal adenopathy is seen. There is a small umbilical hernia containing only fat There is a small hiatal hernia. There is prominence of the gastric wall that is likely due to the decompressed state. There is no sign of small bowel obstruction. The colon appears unremarkable. The appendix appears normal also. No free intraperitoneal air is identified. There is a small amount of free pelvic fluid No distal ureteral or bladder calculi are seen. The bladder is decompressed. The iliac arteries are of normal caliber. No pelvic adenopathy is noted. There are bilateral tubal ligation clips There is mild subsegmental atelectasis in the lung bases. No fracture is identified. No focal osseous lesion is seen Impression: 1. Suspected left pyelonephritis. Correlation with clinical symptoms and laboratory values is recommended 2. Small left renal cyst 3. Small amount of free pelvic fluid 4. Small hiatal hernia 5. Small hepatic cyst ACT 112: Positive. There are findings on this exam that require communication between the performing entity and the patient following Patient Test Result Information Act ([place] ACT 112) guidelines. Electronically signed by José Luis Coulter 12-13-2024 6:17 PM Code Status & VTE Plan VTE Prophylaxis Plan VTE Prophylaxis will be ordered: Yes Supervising Physician Co-Signing Physician Notes Care coordinated with Jesus Manuel Serrano PAC. Agree with above note. Patient seen and examined. Please refer to her notes for full details. Vital signs reviewed. Physical exam: General exam: Alert and oriented. Not in acute distress. CVS: S1 and S2 heard, regular rate and rhythm, no murmurs. RS: Clear to auscultation, no wheezing or crackles. ABD: Soft, bowel sounds present, nontender, no distention. DIRECTOR UNIVERSITY: Nonfocal. EXT: No edema, no erythema. Labs: Reviewed. Assessment and plan: 54F presents with nausea, dry heaves, burning micturition left back pain going on since friday. yesterday had fever. Not feeling well. Found to have Left pyelonephritis Pyelonephritis UTI Received rocephin which will be continued Hx of UTI with E coli sensitive to rocephin in the past fluids close Monitor Hx of HTN not taking meds currently will monitor hx of hypothyroidism not taking meds will follow tsh Other diagnosis and plan of care as per Jesus Manuel Serrano PAC . Tony quintana MD. (1) Sepsis Sepsis acute organ dysfunction status: without acute organ dysfunction Sepsis type: sepsis due to unspecified organism Qualified Code(s): A41.9 - Sepsis, unspecified organism
[2024-12-13] MEDS ORDERED: ONDANSETRON INJ 2 MG/ML 2 ML VIAL IV PRN (19:10)
[2024-12-13] MEDS ORDERED: ACETAMINOPHEN 500 MG TAB PO PRN (19:10)
[2024-12-13] MEDS ORDERED: MELATONIN 3 MG TAB PO PRN (19:10)
[2024-12-13] MEDS ORDERED: POLYETHYLENE (MIRALAX) 17 GM PACK PO PRN (19:10)
[2024-12-13] MEDS: LIDOCAINE 5% 1 PATCH TD STA (19:45)
[2024-12-13] MEDS: ENOXAPARIN INJ 40 MG/0.4 ML SYR SQ SCH (19:46)
[2024-12-13] MEDS: REMOVE LIDODERM PATCH SCH (20:02)
[2024-12-13] MEDS: PROMETHAZINE 12.5 MG/50.5 ML BAG IV STA (22:01)
[2024-12-13] MEDS: ACETAMINOPHEN 500 MG TAB PO SCH (22:02)
[2024-12-14 06:49] LABS: Hematocrit (blood only) 37.4 % (37.0-47.0); Hemoglobin 13.3 g/dl (12.0-16.0); Mean Corpuscular Hemoglobin 34.3 pg (25.0-34.0); Mean Corpuscular Volume 96.4 fL (80.0-100.0); Platelet Count 166 K/uL (130-400); RDW Standard Deviation 47.2 fL (36.4-46.3); Red Blood Count 3.88 M/uL (4.20-5.40); White Blood Count 15.27 K/ul (4.8-10.8)
[2024-12-14 07:06] LABS: Hemoglobin A1C 5.3 % (4.5-5.6)
[2024-12-14 07:08] LABS: Anion Gap 9.0 (3-11); Blood Urea Nitrogen 11.0 mg/dl (6-23); Calcium 7.8 mg/dl (8.6-10.3); Carbon Dioxide 20.0 mmol/L (21-32); Chloride 111.0 mmol/L (98-107); Creatinine Clr Calc Pharmacy 81.2 ml/min; Glucose 103.0 mg/dl (70-99(Fasting)); Magnesium 1.8 mg/dl (1.7-2.4); Potassium 3.3 mmol/L (3.5-5.1); Sodium 140.0 mmol/L (136-145)
[2024-12-14 07:22] LABS: Thyroid Stimulating Hormone 0.828 uIu/ml (0.300-4.500)
[2024-12-14] MEDS: POTASSIUM CHLORIDE CRTAB 20 MEQ TABCR PO STA (09:18)
[2024-12-14 09:35] LABS: A calco-baum cmplx NotReported Not Detected (NotDetected); Bact fragilis Not Reported Not Detected (NotDetected); Blood Culture Id Panel See PCR Comment (NotDetected); C auris Not Reported Not Detected (NotDetected); CTX-M Resistant Gene Not Detected (NotDetected); Calbicans Not Reported Not Detected (NotDetected); Candida glabrata Not Reported Not Detected (NotDetected); Candida krusei Not Reported Not Detected (NotDetected); Cneoformans/gatti Not Reported Not Detected (NotDetected); Cparapsilosis Not Reported Not Detected (NotDetected); Ctropicalis Not Reported Not Detected (NotDetected); E cloacae compx Not Reported Not Detected (NotDetected); Efaecalis Not Reported Not Detected (NotDetected); Efaecium Not Reported Not Detected (NotDetected); Enterobacterales DETECTED (NotDetected); Enterobacterales Not Reported DETECTED (NotDetected); Escherichia coli Not Reported DETECTED (NotDetected); H influenzae Not Reported Not Detected (NotDetected); IMP Resistant Gene Not Detected (NotDetected); K aerogenes Not Reported Not Detected (NotDetected); KPC Resistant Gene Not Detected (NotDetected); Koxytoca Not Reported Not Detected (NotDetected); Kpneumoniae grp Not Reported Not Detected (NotDetected); Lmonocyt Not Reported Not Detected (NotDetected); N meningitidis Not Reported Not Detected (NotDetected); NDM Resistant Gene Not Detected (NotDetected); OXA 48 Like Resistant Gene Not Detected (NotDetected); P aeruginosa Not Reported Not Detected (NotDetected); Proteus spp Not Reported Not Detected (NotDetected); Salmonella spp Not Reported Not Detected (NotDetected); Staph lugdunensis Not Reported Not Detected (NotDetected); Staph spp. Not Reported Not Detected (NotDetected); Staphaureus Not Reported Not Detected (NotDetected); Staphepi Not Reported Not Detected (NotDetected); Stenmaltophilia Not Reported Not Detected (NotDetected); Strep agal(GrpB) Not Reported Not Detected (NotDetected); Strep pneum Not Reported Not Detected (NotDetected); Strep pyog (GrpA) Not Reported Not Detected (NotDetected); Strep spp Not Reported Not Detected (NotDetected); VIM Resistant Gene Not Detected (NotDetected); mcr-1 Colistin Resistant Gene Not Detected (NotDetected)
[2024-12-14] MEDS: POTASSIUM CHLORIDE 20 MEQ/15 ML UDC PO STA (09:50)
[2024-12-14] MEDS: cefTRIAXone SODIUM 2,000 MG/50 ML BAG IV SCH (11:11)
--- NOTE | 2024-12-14 12:23 | Hospitalist Progress Note ---
Date of Service December 14, 2024 Assessment & Plan (1) UTI (urinary tract infection): (2) Pyelonephritis of left kidney: Plan 52-year-old female with PMH of hypertension, prediabetes, h/o Lesly's thyroiditis and other medical problems listed below who presents to the ED with her daughter at bedside due to urinary symptoms x 3 days and findings consistent with acute pyelonephritis. Sepsis POA: lactate wnl Pyelonephritis of left kidney: Bacteremia: Likely urinary source. Presenting: Tmax 37.9, HR 113, WBC 15k, procal 0.85 with grossly abnormal UA meeting sepsis criteria CT abd/pelvis with 1. Suspected left pyelonephritis. 2. Small left renal cyst 3. Small amount of free pelvic fluid Continue with Rocephin 12/13. Follow culture and sensitivity. ID consult. Patient reports gradually feeling better, reports decreasing back pain and lower abdominal pain. Tobacco use disorder: Continues to smoke 1/2 pack per day. Offered nicotine patch and declined Hypothyroidism: Previously on levothyroxine for Lesly's thyroiditis but discontinued d/t side effects per Epic review.TSH wnl. Prediabetes: A1c 5.7 in 2021, repeat a1c 5.3 this admission. DVT Ppx: SQ lovenox Code status: FULL PCP: Previously followed with Dr. Celestin but has not followed up since 2021 Dispo: Admitted to med/surg Admission and Anticipated Discharge Date Admission Date: December 13, 2024 Subjective patient was seen and examined at bedside. Patient was lying in bed, on room air, NAD, resting comfortably. Patient reports overall she is feeling better, reports her nausea and vomiting is improved and would like to advance the diet, same has been communicated with RN. Patient also reports her lower belly pain and back pain is improving. Patient now denies pain or burning while passing urine. Patient does have mild tenderness on left CVA during exam which is better than yesterday per pt. Physical Exam Physical Exam: General Appearance: WD/WN, vitals as above, NAD, sitting up in bed, appears ill/sick Head: normocephalic, atraumatic Eyes: normal inspection, PERRL, conjunctivae normal, anicteric sclerae ENT: external ear and nose normal, moist mucous membranes of oropharynx Neck: normal visual inspection Respiratory: normal respiratory effort, lungs clear to auscultation, no wheeze, rales, rhonchi. No accessory muscle use Cardiovascular: tachycardic rate, regular rhythm, normal peripheral pulses, no BLE edema. Vessels: no JVD Chest: normal inspection of chest Abdomen/GI: normal bowel sounds, soft,no hepatosplenomegaly : left cva tender x mild. Extremities/Musculoskeletal: no cyanosis or clubbing, extremities motor strength 5/5 Neurologic: PERRL, EOMI, accommodation nl, no face palsy, no dysarthria, CN's II-XI intact bilaterally and moves all extremities Psychiatric: A+Ox3, flat affect Skin: no rashes, normal color, warm/dry Results & Data Results & Data Vital Signs (Past 12 Hours) Vital Signs Temp Pulse Resp BP Pulse Ox O2 Del Method 12/14/24 07:22 36.9 C 72 16 91/60 L 94 Room Air (1) UTI (urinary tract infection) Urinary tract infection type: acute pyelonephritis Qualified Code(s): N10 - Acute pyelonephritis
[2024-12-14] MEDS: ACETAMINOPHEN 325 MG TAB PO PRN (14:43)
[2024-12-14] MEDS: KETOROLAC TROMETHAMINE 15 MG/ML VIAL IV PRN (18:43)
[2024-12-15 00:32] VITALS: TEMP 98.1
[2024-12-15] MEDS: NICOTINE 14 MG/24 HR PATCH TD SCH (06:27)
[2024-12-15 06:52] VITALS: BP 126/82; PULSE 79; RESP 16; O2SAT 94
[2024-12-15 07:33] LABS: Hematocrit (blood only) 38.0 % (37.0-47.0); Hemoglobin 13.3 g/dl (12.0-16.0); Mean Corpuscular Hemoglobin 33.3 pg (25.0-34.0); Mean Corpuscular Volume 95.2 fL (80.0-100.0); Platelet Count 171 K/uL (130-400); RDW Standard Deviation 44.6 fL (36.4-46.3); Red Blood Count 3.99 M/uL (4.20-5.40); White Blood Count 11.10 K/ul (4.8-10.8)
[2024-12-15 07:46] LABS: Anion Gap 7.0 (3-11); Blood Urea Nitrogen 11.0 mg/dl (6-23); Calcium 8.5 mg/dl (8.6-10.3); Carbon Dioxide 21.0 mmol/L (21-32); Chloride 109.0 mmol/L (98-107); Creatinine Clr Calc Pharmacy 95.2 ml/min; Glucose 86.0 mg/dl (70-99(Fasting)); Magnesium 2.1 mg/dl (1.7-2.4); Potassium 3.7 mmol/L (3.5-5.1); Sodium 137.0 mmol/L (136-145)
[2024-12-15] MEDS: POT PHOSPHATE MONOBASIC W/ SOD TAB PO SCH (09:27)
--- NOTE | 2024-12-15 11:53 | Hospitalist Progress Note ---
Date of Service December 15, 2024 Assessment & Plan (1) UTI (urinary tract infection): (2) Pyelonephritis of left kidney: Plan 52-year-old female with PMH of hypertension, prediabetes, h/o Lesly's thyroiditis and other medical problems listed below who presents to the ED with her daughter at bedside due to urinary symptoms x 3 days and findings consistent with acute pyelonephritis. Sepsis POA: lactate wnl Pyelonephritis of left kidney: Bacteremia: Likely urinary source. Presenting: Tmax 37.9, HR 113, WBC 15k, procal 0.85 with grossly abnormal UA meeting sepsis criteria CT abd/pelvis with 1. Suspected left pyelonephritis. 2. Small left renal cyst 3. Small amount of free pelvic fluid Continue with Rocephin 12/13. Follow culture and sensitivity. Urine Cx w/ e coli pansensistive, bl cx sensitivity pending. ID consult. Patient reports feeling better, reports no back pain and lower abdominal pain. Tobacco use disorder: Continues to smoke 1/2 pack per day. Offered nicotine [facility] and declined Hypothyroidism: Previously on levothyroxine for Lesly's thyroiditis but discontinued d/t side effects per Epic review.TSH wnl. Prediabetes: A1c 5.7 in 2021, repeat a1c 5.3 this admission. DVT Ppx: SQ lovenox Code status: FULL PCP: Previously followed with Dr. Cleestin but has not followed up since 2021 Dispo: [facility] w/ ID recs Admission and Anticipated Discharge Date Admission Date: December 14, 2024 Subjective Patient was seen and examined at bedside. Patient was lying in bed, on room air, NAD, resting comfortably. Patient reports overall she is feeling better significantly, denies abd pain/back pain/N/V. No new ros/complaints. Physical Exam Physical Exam: General Appearance: WD/WN, vitals as above, NAD, sitting up in bed, appears ill/sick Head: normocephalic, atraumatic Eyes: normal inspection, PERRL, conjunctivae normal, anicteric sclerae ENT: external ear and nose normal, moist mucous membranes of oropharynx Neck: normal visual inspection Respiratory: normal respiratory effort, lungs clear to auscultation, no wheeze, rales, rhonchi. No accessory muscle use Cardiovascular: rrr, normal peripheral pulses, no BLE edema. Vessels: no JVD Chest: normal inspection of chest Abdomen/GI: normal bowel sounds, soft,no hepatosplenomegaly : left cva tender x non tender Extremities/Musculoskeletal: no cyanosis or clubbing, extremities motor strength 5/5 Neurologic: PERRL, EOMI, accommodation nl, no face palsy, no dysarthria, CN's II-XI intact bilaterally and moves all extremities Psychiatric: A+Ox3, flat affect Skin: no rashes, normal color, warm/dry Results & Data Results & Data Vital Signs (Past 12 Hours) Vital Signs Temp Pulse Resp BP Pulse Ox O2 Del Method 12/15/24 06:51 36.7 C 79 16 126/82 94 Room Air 12/15/24 05:35 149/87 H (1) UTI (urinary tract infection) Urinary tract infection type: acute pyelonephritis Qualified Code(s): N10 - Acute pyelonephritis
--- NOTE | 2024-12-15 13:11 | Infectious Disease Consult ---
Date of Service December 15, 2024 Telehealth Information I performed this visit using a real-time telehealth connection between my location and the patients location ([facility]). After connecting through interactive tele-video, patient was identified by name and date of and/or wristband check.Patient (or authorized healthcare provider relations representative) was informed that this was a telemedicine visit and it was being conducted confidentially over secure lines. My office door was closed and no o ne else was present in the room with me.Patient (or authorized healthcare provider relations representative) provided consent to proceed with the visit, expressed an understanding of privacy and security of the telemedicine visit, and gave permission to have a hospital provider relations representative in the room in order to assist with the visit and to conduct portions of the visit, as needed. I informed the patient (or authorized healthcare provider relations representative) that I reviewed their record and presented the opportunity for them to ask any questions regarding the visit today. The patient agreed to participate. Assessment & Plan (1) Fever: (2) Left flank pain: (3) UTI (urinary tract infection): (4) Pyelonephritis of left kidney: (5) Sepsis: Plan Assessment: 52-year-old female with PMHx of hypertension, prediabetes, h/o Lesly's thyroiditis and other medical problems listed below who presented to [facility] on 12/13/2024 for urinary symptoms x 3 days and fever. Pt had rigors and continues to have pain in left flank, 10/12. Blood culture returned positive for E. coli and Urine culture returned positive for E. Coli. Pt diagnosed with E. coli bacteremia and sepsis 2/2 UTI. Plan: 1. E. coli bacteremia 2/2 UTI, Upper UTI - Pt currently on Ceftriaxone, recommend switching to cipro 500 mg PO BID to complete 10 days of total antibiotics. Okay for d/c from ID standpoint. - Pt improve and plan discussed in detail - we will sign off, no need for ID clinic appointment, please call with issues, concerns, or questions. History of Present Illness History of Present Illness Reason for consult: complicated uti, bacteremia 52-year-old female with PMHx of hypertension, prediabetes, h/o Lesly's thyroiditis and other medical problems listed below who presented to [facility] on 12/13/2024 for urinary symptoms x 3 days and fever. Per notes and chart review, pt had dysuria for 2 days and then developed subjective fever, chills, decreased appetite and left flank pain radiating to her back described as intermittent and sharp. Patient with improved vitals and afebrile at time of evaluation in ED. Pt had rigors and continues to have pain in left flank, 10/12. Blood culture returned positive for E. coli and Urine culture returned positive for E. Coli. ID consulted for evaluation and management of E. coli bacteremia and sepsis 2/2 UTI. Allergies Allergy/AdvReac Type Severity Reaction Status Date / Time Sulfa (Sulfonamide AdvReac Intermediate VOMITING Verified 12/13/24 19:10 Antibiotics) Home Medications Medication Instructions Recorded Confirmed Type ciprofloxacin HCl 500 mg tablet 500 mg PO BID 8 days #16 tabs 12/15/24 Rx lactobacillus combination no.4 3 3,000 mmu cells PO DAILY 2 weeks 12/15/24 Rx billion cell capsule (Probiotic) #14 caps nicotine 7 mg/24 hr daily 1 patch transdermal QAM #28 ea 12/15/24 Rx transdermal patch Patient History Medical History Prediabetes Hypothyroidism Tobacco use disorder Surgical History History of bilateral tubal ligation History of suburethral sling procedure H/O foot surgery Status post hysteroscopic ablation of endometrium History of Family History Brother Colon cancer Social History Smoking Status: Current every day smoker Tobacco Type: Cigarettes Second Hand Exposure: No; Do You Dip or Chew Tobacco: No; Hx Alcohol Use: Yes Alcohol type: other Alcohol Intake Frequency: Monthly or Less Hx Substance Use: No Preferred Language: Angolan Communication Ability: Effective Senior Sales Executive Required: No Beliefs That Will Affect Care: None Current Living Situation: Family Feels Safe at Home: Yes Assistive Devices: None Review of Systems ROS: reviewed all with patient, all negative currently Physical Exam NA Results & Data Vital Signs (Past 12 Hours) Vital Signs Temp Pulse Resp BP Pulse Ox O2 Del Method 12/15/24 06:51 36.7 C 79 16 126/82 94 Room Air 12/15/24 05:35 149/87 H Laboratory Results Blood culture on 12/13/2024 Blood Culture Anaerobic Preliminary 12/15/24-0917 Organism 1 Escherichia coli Sens Sensitivities to Follow Blood Culture PCR Panel If viewing in EMR, results available under LAB Serology tab. Urine culture on 12/13/2024 Urine Culture Final 12/15/24-1146 Organism 1 Escherichia coli [place] Count >100,000 CFU/ml Sens Sensitivities to Follow E coli RX M.I.C. --- --------- Amikacin S <=16 Amox/Clav S <=8/4 Ampicillin S <=8 Amp/Sul S <=4/2 Cefazolin S <=2 Cefepime S <=2 Cefotaxime S <=2 Cefoxitin S <=8 Ceftriaxone S <=1 Cefuroxime S <=4 Ciprofloxacin S <=0.25 Ertapenem S <=0.5 Gentamicin S <=2 Levofloxacin S <=0.5 Meropenem S <=1 Nitrofurantoin S <=32 Tobramycin S <=2 Trimeth/Sulfa S <=0.5/9.5 Pip/Tazo S <=8 S = SENSITIVE I = INTERMEDIATE R = RESISTANT 12/13/24 16:45 Urine Culture - Final Urine,Clean Catch Escherichia coli 12/13/24 17:15 Aerobic Blood Culture - Preliminary Blood No growth in Aerobic bottle after 24 hours. Anaerobic Blood Culture - Preliminary Escherichia coli 12/13/24 16:50 Aerobic Blood Culture - Preliminary Blood No growth in Aerobic bottle after 24 hours. Anaerobic Blood Culture - Preliminary No growth in Anaerobic bottle after 24 hours. 12/15/24 06:10 WBC 11.10 H RBC 3.99 L Hgb 13.3 Hct 38.0 MCV 95.2 MCH 33.3 MCHC 35.0 RDW Std Deviation 44.6 RDW Coeff of [place] 12.8 Plt Count 171 MPV 11.4 Sodium 137 Potassium 3.7 Chloride 109 H Carbon Dioxide 21 Anion Gap 7 BUN 11 Creatinine 0.81 Est Cr Clr Drug Dosing 95.2 eGFR 86.21 BUN/Creatinine Ratio 13.6 Glucose 86 Calcium 8.5 L Phosphorus 2.0 L Magnesium 2.[address] abd/pelvis on 12/13/2024 Impression: 1. Suspected left pyelonephritis. Correlation with clinical symptoms and laboratory values is recommended 2. Small left renal cyst 3. Small amount of free pelvic fluid 4. Small hiatal hernia 5. Small hepatic cyst Medications Administered Home Medications Medication Instructions Recorded Confirmed Last Taken ciprofloxacin HCl 500 mg tablet 500 mg PO BID 8 days #16 tabs 12/15/24 Unknown lactobacillus combination no.4 3 3,000 mmu cells PO DAILY 2 weeks 12/15/24 Unknown billion cell capsule (Probiotic) #14 caps nicotine 7 mg/24 hr daily 1 patch transdermal QAM #28 ea 12/15/24 Unknown transdermal patch (1) Fever Fever type: unspecified Qualified Code(s): R50.9 - Fever, unspecified (3) UTI (urinary tract infection) Urinary tract infection type: acute pyelonephritis Qualified Code(s): N10 - Acute pyelonephritis (5) Sepsis Sepsis acute organ dysfunction status: without acute organ dysfunction Sepsis type: sepsis due to unspecified organism Qualified Code(s): A41.9 - Sepsis, unspecified organism
--- NOTE | 2024-12-15 13:47 | Discharge Summary ---
Date of Service December 15, 2024 Admission HPI Per Admitting Provider This is a 52-year-old female with PMH of hypertension, prediabetes, h/o Lesly's thyroiditis and other medical problems listed below who presents to the ED with her daughter at bedside due to urinary symptoms x 3 days and fever. Patient first notes dysuria 2 days ago and then yesterday developed subjective fever, chills, decreased appetite and left flank pain radiating to her back described as intermittent and sharp. Daughter states she has been sleeping most of the time since yesterday at 1300. Had similar symptoms in 2019 when she was admitted for complicated UTI and found to be growing a Bactrim-resistant E. coli growing on blood cultures. Denies any urinary issues since then. Does not take any medications at home. Upon chart review, has not seen PCP since 2021. Previously prescribed levothyroxine for Lesly's thyroiditis but did not like the side effects of medication per chart review and has discontinued. Also noted to be prediabetic in the past with A1c of 5.7 in 2021. Patient with improved vitals and afebrile at time of evaluation in ED. Has rigors and continues to have pain in left flank, 6/10. No exacerbating or remitting factors. No vomiting but persistently poor appetite. Feels dehydrated. No lightheadedness, chest pain, shortness of breath, abdominal pain, diarrhea or constipation. Admission Exam Per Admitting Provider General Appearance: WD/WN, vitals as above, NAD, sitting up in bed, appears ill, +rigors, answers questions appropriately Head: normocephalic, atraumatic Eyes: normal inspection, PERRL, conjunctivae normal, anicteric sclerae ENT: external ear and nose normal, dry mucous membranes of oropharynx Neck: normal visual inspection Respiratory: normal respiratory effort, lungs clear to auscultation, no wheeze, rales, rhonchi. No accessory muscle use Cardiovascular: tachycardic rate, regular rhythm, normal peripheral pulses, no BLE edema. Vessels: no JVD Chest: normal inspection of chest Abdomen/GI: normal bowel sounds, soft,no hepatosplenomegaly : L flank pain with radiation to L CVA Extremities/Musculoskeletal: no cyanosis or clubbing, extremities motor strength 5/5 Neurologic: PERRL, EOMI, accommodation nl, no face palsy, no dysarthria, CN's II-XI intact bilaterally and moves all extremities Psychiatric: A+Ox3, flat affect Skin: no rashes, normal color, warm/dry Principal Diagnosis Sepsis POA Pyelonephritis of left kidney Bacteremia Discharge Exam General Appearance: WD/WN, vitals as above, NAD, sitting up in bed, appears comfortable Head: normocephalic, atraumatic Eyes: normal inspection, PERRL, conjunctivae normal, anicteric sclerae ENT: external ear and nose normal, moist mucous membranes of oropharynx Neck: normal visual inspection Respiratory: normal respiratory effort, lungs clear to auscultation, no wheeze, rales, rhonchi. No accessory muscle use Cardiovascular: rrr, normal peripheral pulses, no BLE edema. Vessels: no JVD Chest: normal inspection of chest Abdomen/GI: normal bowel sounds, soft,no hepatosplenomegaly : left cva tender x non tender Extremities/Musculoskeletal: no cyanosis or clubbing, extremities motor strength 5/5 Neurologic: PERRL, EOMI, accommodation nl, no face palsy, no dysarthria, CN's II-XI intact bilaterally and moves all extremities Psychiatric: A+Ox3, flat affect Skin: no rashes, normal color, warm/dry Discharge Data Allergies Allergy/AdvReac Type Severity Reaction Status Date / Time Sulfa (Sulfonamide AdvReac Intermediate VOMITING Verified 12/13/24 19:10 Antibiotics) Consultations 12/13/24 18:38 ED Decision to Admit Stat 12/14/24 12:16 Consult Infectious Diseases Routine Ordered Studies 12/13/24 16:58 CT Abd and Pelvis [CT abd pelvis IV con only] Stat Hospital Course (1) UTI (urinary tract infection): (2) Pyelonephritis of left kidney: Plan 52-year-old female with PMH of hypertension, prediabetes, h/o Lesly's thyroiditis and other medical problems listed below who presents to the ED with her daughter at bedside due to urinary symptoms x 3 days and findings consistent with acute pyelonephritis. Sepsis POA: lactate wnl Pyelonephritis of left kidney: Bacteremia: Likely urinary source. Presenting: Tmax 37.9, HR 113, WBC 15k, procal 0.85 with grossly abnormal UA meeting sepsis criteria CT abd/pelvis with 1. Suspected left pyelonephritis. 2. Small left renal cyst 3. Small amount of free pelvic fluid Continue with Rocephin 12/13. Follow culture and sensitivity. Urine Cx w/ e coli pansensistive, bl cx sensitivity pending. ID evaled, d/w ID ok to dc on cipro bid x 8 days. Patient reports feeling better, reports no back pain and lower abdominal pain. Tobacco use disorder: Continues to smoke 1/2 pack per day. Offered nicotine patch and declined Hypothyroidism: Previously on levothyroxine for Lesly's thyroiditis but discontinued d/t side effects per Epic review.TSH wnl. Prediabetes: A1c 5.7 in 2021, repeat a1c 5.3 this admission. DVT Ppx: SQ lovenox Code status: FULL PCP: Previously followed with Dr. Celestin but has not followed up since 2021 Dispo: DC w/ ID recs Pt is being discharged home w/ following instructions at the point of discharge: Follow-up with your primary care physician within a week time and likely you will need labs CBC/CMP/magnesium/phosphorus. Infectious disease physician evaluated you for blood infection likely secondary to urine infection, you will be discharged on oral antibiotic to complete the course. Take your medications as prescribed. Please make sure that you are able to get your medications today by calling your pharmacy before you leave the hospital so that your treatment continuity is not broken. Home Health Attestation I certify that this patient is under my care and that I, or a physicians business assistant working with me, had a face to-face encounter that meets the home health [id number] encounter requirements with this patient. The encounter with the patient was in whole, or in part, for the following medical condition, which is the primary reason for home health care (list medi tammie condition): I certify that, based on my findings, the following services are medically necessary home health services: My clinical findings support the need for the above services because: Further, I certify that my clinical findings support that this patient is homebound (i.e. absences from home require considerable and taxing effort and are for medical reasons or jainism services or infrequently or of short duration when for other reasons) because: Certification for Home Health Services: Based on the above findings, I certify that this patient is confined to the home and needs intermittent snf care, physical therapy and/or speech ther apy or continues to need occupational therapy. The patient is under my care, and I have initiated the establishment of the plan of care. This patient will be followed by a physician who will periodically review the plan of care. Total Time Total Time Spent Total Time Spent (In Minutes): 45 Discharge Plan Discharge Items Patient Disposition: Home - Self-Care Reason For Visit: PYELO, N/V Discharge Diagnosis: Sepsis POA Pyelonephritis of left kidney Bacteremia Condition on Discharge: Good Activity: Resume your previous activity Non-emergency contact: Primary Care Provider Call non-emergency contact if: you have any medication questions and your symptoms worsen Follow-up/Referrals: Nicholas Celestin MD [Primary Care Provider] - (Date & Time 12/24/2024 11:20 AM Provider: Nicholas Celestin MD General Internal Medicine [facility] ) Diet: Regular Addtl Attending Provider Instructions: Follow-up with your primary care physician within a week time and likely you will need labs CBC/CMP/magnesium/phosphorus. Infectious disease physician evaluated you for blood infection likely secondary to urine infection, you will be discharged on oral antibiotic to complete the course. Take your medications as prescribed. Please make sure that you are able to get your medications today by calling your pharmacy before you leave the hospital so that your treatment continuity is not broken. Pending Studies at Discharge: Yes Stand-Alone Forms: My [facility], Smoking Cessation Medications and DC Order Prescriptions: New nicotine 7 mg/24 hr Patch 24 Hour 1 patch transdermal QAM Qty: 28 0RF ciprofloxacin HCl 500 mg tablet 500 mg PO BID 8 Days Qty: 16 0RF Probiotic 3 billion cell capsule 3,000 mmu cells PO DAILY 14 Days Qty: 14 0RF Rx Instructions: administer with a meal Discharge Orders: Discharge Order (Routine); Ordered 12/15/24 Ordered By: Anna Arrington Admission Data Admit Date/Time: 12/14/24 14:07 Attending Provider: Anna Arrington Admit Provider: Tony Acharya Primary Care Provider: Nicholas Celestin Other Providers: Tony Acharya; Khalif Milan; Kacie Patricio; Dale Ken I.; Atul Gonzalez II; Alejandra Harris; Shai Fang; Todd Pichardo; Jamel Swan
[2024-12-16] MEDS ORDERED: REMOVE NICODERM PATCH SCH (08:59)
== END 2024-12-15 14:52 | disposition home or self-care (01) | DRG 872 ==
LOC: EDINP 16:32 → ED 16:32 → SUATTDRO 19:01 → 3E 19:10